=== PATIENT | female | born 1990 | race African-American/Black ===

== ENCOUNTER 2016-08-12 07:56 | Emergency (ER) | payer OTHER ==
[~2016-08-12] VITALS: Ht 160 cm; Wt 90.0 kg
[~2016-08-12 07:56] MED LIST: HYDR-3535 PO; LEVA750T PO; VENTAER INH
[2016-08-12 07:58] VITALS: BP 127/74; PULSE 100; RESP 14; TEMP 98.3; O2SAT 100
[2016-08-12] MEDS ORDERED: TIZA2CAP3 PO (08:17)
--- NOTE | 2016-08-12 08:31 | PD ---
HPI Chief Complaint: Injury Time Seen by Provider: 08:31 Travel History International Travel<30 days: No Contact w/Intl Traveler<30days: No Traveled to known affect area: No History of Present Illness HPI 26-year-old female presents to the emergency department complaint of left foot pain 1 month with worsening. Cannot recall an injury but says she may have fell approximately a month ago and then kicked her bed rail approximately 2 weeks ago. Denies paresthesias, loss of sensation to the affected extremity. Reports decreased range of motion to her toes secondary to pain. Says her left foot is swollen compared to her right foot. Pain is aggravated with ambulation. Patient has been ambulatory on the affected extremity. Has not taken any medications or tried any treatments to alleviate her symptoms. Dr. Tong is her primary care provider and has not followed up with him in regards to her complaint. Denies fever, chills, nausea, vomiting. Allergies to codeine , Dilaudid, naproxen, Tylenol 3, Ultram. Denies significant past medical history. No other modifying factors or associated signs and symptoms. PFSH Past Medical History Hx Anticoagulant Therapy: No Arthritis: No Asthma: No Autoimmune Disease: No Blood Disorders: No Anxiety: No Depression: No Heart Rhythm Problems: No Cancer: No Cardiovascular Problems: No High Cholesterol: No Chemotherapy: No Chest Pain: Yes Congestive Heart Failure: No COPD: No Cerebrovascular Accident: No Cystic Fibrosis: No Diabetes: No Diminished Hearing: No Endocrine: No Gastrointestinal Disorders: No GERD: No Genitourinary: No Headaches: Yes Hiatal Hernia: No Immune Disorder: No Implanted Vascular Access Dvce: Yes Kidney Stones: No Musculoskeletal: Yes Neurologic: Yes ( AV SHUNT PLACED IN 2011) Psychiatric: No Reproductive: No Respiratory: No Immunizations Current: No Migraines: Yes Pneumonia: Yes (04/13/2012) Radiation Therapy: No Renal Failure: No Seizures: No Sickle Cell Disease: No Sleep Apnea: No Thyroid Disease: No Ulcer: No Tetanus Vaccination: > 5 Years PNEUMOCCOCAL Vaccine (Year): 2 ?: Not Menopausal: No : 0 Para: 0 Past Surgical History Abdominal Surgery: No AICD: No Arteriovenous Shunt: Yes (AT 5 MONTHS OLD) Body Medical Devices: CEPHALIC SHUNT AT 5 MONTHS OLD / 16-17 sx since Cardiac Surgery: No Ear Surgery: No Endocrine Surgery: No Eye Surgery: No Genitourinary Surgery: No Gynecologic Surgery: No Insulin Pump: No Joint Replacement: No Neurologic Surgery: Yes (CEPHALIC SHUNT) Oral Surgery: No Pacemaker: No Thoracic Surgery: No Other Surgery: Yes Social History Alcohol Use: No Tobacco Use: No (never) Substance Use: No Allergies-Medications (Allergen,Severity, Reaction): Coded Allergies: Codeine (Verified Allergy, Severe, Nausea/Vomiting, 05/25/16) Naproxen (Verified Allergy, Severe, Itching, 05/25/16) Tylenol #3 (Verified Allergy, Severe, 05/25/16) Ultram (Verified Allergy, Severe, Itching, 05/25/16) Dilaudid (Verified Adverse Reaction, Severe, Itching, 05/25/16) *MDRO Multi-Drug Resistant Organism (Verified Adverse Reaction, Unknown, 05/25/16) 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 No wounds noted to the left. HEAD: Atraumatic. Normocephalic. EYES: Pupils equal and round. No scleral icterus. No injection or drainage. ENT: Mucosa pink and moist. Airway patent. NECK: Trachea midline. CARDIOVASCULAR: Regular rate. RESPIRATORY: No accessory muscle use. GASTROINTESTINAL: Rounded. MUSCULOSKELETAL: Left foot is nonedematous and nonerythematous and without obvious deformity; less than 3 second cap refill; foot and ankle with full range of motion and strength. Left lower extremity is supple and non-tense with 2+ pedal pulses and sensory intact and without erythema or edema. Patient reports tenderness on palpation to the entire foot. No obvious deformities. No clubbing. No cyanosis. No edema. NEUROLOGICAL: Awake and alert. Oriented 3. No obvious cranial nerve deficits. Motor grossly within normal limits. Normal speech. PSYCHIATRIC: Appropriate mood and affect; insight and judgment normal. Data Data Last Documented VS Vital Signs Date Time Temp Pulse Resp B/P Pulse Ox O2 Delivery O2 Flow Rate FiO2 08/12/16 07:58 98.3 100 14 127/74 100 Room Air Orders Foot, Complete ([id number]) (08/12/16 08:33) Crutches (08/12/16 08:33) MDM Medical Decision Making Medical Screen Exam Complete: Yes Emergency Medical Condition: Yes Medical Record Reviewed: Yes Differential Diagnosis Plantar fasciitis, Heel spur, fracture Narrative Course 26-year-old female with left foot pain with questionable injury times one month. Patient reports tenderness on palpation to the entire foot during physical exam. There is no obvious deformity. The left looks very supple and non-tense with 2+ pedal pulses and sensory intact. Toes are pink and warm and with good cap refill. I do not suspect fracture or dislocation and feel that imaging is not necessary, but the patient is requesting imaging. I will order the imaging secondary to questionable injury and physical exam findings. Left foot x-ray ordered. 0916: Left foot x-ray concludes Unremarkable examination of the left foot. Crutches provided for support. Instructed patient to follow up with podiatry. Patient is medically cleared and stable for discharge. Discussed reasons to return to the emergency department. Instructed patient to follow up with primary care provider. Patient agrees with treatment plan. The patients vital signs are stable and the patient is stable for outpatient follow-up and treatment. Patient discharged home, stable and in no acute distress. 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 Patient Instructions: Crutch Instructions (ED), General Instructions Additional Instructions: Tylenol or ibuprofen as directed and as needed for pain and inflammation Rest, ice, compress, and elevate extremity to decrease pain and inflammation Crutches for support Avoid aggravating activity; increase activity as tolerated Follow-up with primary care provider Follow-up with podiatry Return to the emergency department immediately with worsening symptoms Med/Other Pt SpecificInfo: No Change to Meds, No Meds Exist/No RX given Disposition: 01 DISCHARGE HOME Condition: Stable Shraddha Dolan Aug 12, 2016 08:31
--- NOTE | 2016-08-12 09:10 | RADRPT ---
EXAM DATE/TIME: 08/12/2016 08:53 [facility] COMPARISON: No previous studies available for comparison. INDICATIONS : Left foot pain medial side of left foot after hitting it on the bed. MEDICAL HISTORY : Hydrocephalus. SURGICAL HISTORY : Shunt. ENCOUNTER: Initial ACUITY: 1 week PAIN SCORE: 10/10 LOCATION: Left Foot. FINDINGS: Three view examination of the left foot demonstrates no soft tissue swelling, dislocation, or fractur e. The tarsal bones appear intact. The interphalangeal and metatarsophalangeal joints are intact. The calcaneus is intact. Bony mineralization is normal. CONCLUSION: Unremarkable examination of the left foot. Yony Jose MD on August 12, 2016 at 9:05 Board Certified Radiologist. This report was verified electronically.
== END 2016-08-12 09:34 | disposition home or self-care (01) ==
LOC: NEPB 07:56
DX: M79.672 Pain in left foot (principal)
CPT/HCPCS: 73630; 99283; E0113

== ENCOUNTER 2016-09-08 07:36 | Emergency (ER) | payer OTHER ==
[~2016-09-08] VITALS: Ht 162.6 cm; Wt 85.0 kg
[~2016-09-08 07:36] MED LIST changes: -HYDR-3535 PO; -LEVA750T PO; +TIZA2CAP3 PO; -VENTAER INH
[2016-09-08 07:37] VITALS: BP 125/69; PULSE 96; RESP 14; TEMP 98; O2SAT 95
[2016-09-08] MEDS ORDERED: VENTAER INH ×2 (07:53→09:37)
[2016-09-08] MEDS ORDERED: predniSONE 20 MG TAB PO ONE (08:30)
--- NOTE | 2016-09-08 08:31 | PD ---
HPI Chief Complaint: Cold / Flu Symptoms Time Seen by Provider: 08:28 Travel History International Travel<30 days: No Contact w/Intl Traveler<30days: No Traveled to known affect area: No History of Present Illness HPI 26-year-old female presents to the emergency department for evaluation of cold symptoms for approximately 3 days. She reports intermittent wheezing, no shortness breath, chest pain with coughing, coughing, congestion. She denies any fevers or chills. She denies any abdominal pain. No nausea or vomiting. Patient has history of bronchitis and states she uses albuterol inhaler as needed. She states she was using yesterday, but ran out last night. She reports increased wheezing and shortness of breath since then. Patient denies any chance of . She denies any recent travel or surgery. No hemoptysis. No leg edema. Patient is not on control pills. Patient does report a history of hydrocephalus and bronchitis. She has a shunt. She denies any headaches or complications. PFSH Past Medical History Hx Anticoagulant Therapy: No Arthritis: No Asthma: No Autoimmune Disease: No Blood Disorders: No Anxiety: No Depression: No Heart Rhythm Problems: No Cancer: No Cardiovascular Problems: No High Cholesterol: No Chemotherapy: No Chest Pain: Yes Congestive Heart Failure: No COPD: No Cerebrovascular Accident: No Cystic Fibrosis: No Diabetes: No Diminished Hearing: No Endocrine: No Gastrointestinal Disorders: No GERD: No Genitourinary: No Headaches: Yes Hiatal Hernia: No Immune Disorder: No Implanted Vascular Access Dvce: Yes Kidney Stones: No Musculoskeletal: Yes Neurologic: Yes ( AV SHUNT PLACED IN 2011) Psychiatric: No Reproductive: No Respiratory: No Immunizations Current: No Migraines: Yes Pneumonia: Yes (04/13/2012) Radiation Therapy: No Renal Failure: No Seizures: No Sickle Cell Disease: No Sleep Apnea: No Thyroid Disease: No Ulcer: No PNEUMOCCOCAL Vaccine (Year): 2 ?: Not LMP: 07/2016 Menopausal: No : 0 Para: 0 Past Surgical History Abdominal Surgery: No AICD: No Arteriovenous Shunt: Yes (AT 5 MONTHS OLD) Body Medical Devices: CEPHALIC SHUNT AT 5 MONTHS OLD / 16-17 sx since Cardiac Surgery: No Ear Surgery: No Endocrine Surgery: No Eye Surgery: No Genitourinary Surgery: No Gynecologic Surgery: No Insulin Pump: No Joint Replacement: No Neurologic Surgery: Yes (CEPHALIC SHUNT) Oral Surgery: No Pacemaker: No Thoracic Surgery: No Other Surgery: Yes Social History Alcohol Use: No Tobacco Use: No (never) Substance Use: No Allergies-Medications (Allergen,Severity, Reaction): Coded Allergies: Codeine (Verified Allergy, Severe, Nausea/Vomiting, 09/08/16) Naproxen (Verified Allergy, Severe, Itching, 09/08/16) Tylenol #3 (Verified Allergy, Severe, 09/08/16) Ultram (Verified Allergy, Severe, Itching, 09/08/16) Dilaudid (Verified Adverse Reaction, Severe, Itching, 09/08/16) *MDRO Multi-Drug Resistant Organism (Verified Adverse Reaction, Unknown, ) 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 Afebrile. SKIN: Warm and dry. HEAD: Normocephalic. Atraumatic. ENT: Mucosa pink and moist. No erythema or exudates. No uvular edema. No uvular , palatal, or tonsillar deviation. Airway patent. Nasal turbinates appear normal without nasal blood, purulent drainage or septal hematoma. Bilateral tympanic membranes are clear without erythema or perforation. EYES: No scleral icterus. No injection or drainage. NECK: Supple, trachea midline. No JVD or lymphadenopathy. CARDIOVASCULAR: Regular rate and rhythm without murmurs, gallops, or rubs. RESPIRATORY: Breath sounds equal bilaterally. No accessory muscle use. Lungs sounds with expiratory wheezes noted throughout. GASTROINTESTINAL: Abdomen soft, non-tender, nondistended. MUSCULOSKELETAL: No cyanosis, or edema. BACK: Nontender without obvious deformity. No CVA tenderness. Data Data Last Documented VS Vital Signs Date Time Temp Pulse Resp B/P Pulse Ox O2 Delivery O2 Flow Rate FiO2 09/08/16 07:37 98.0 96 14 125/69 95 Room Air Orders Chest, Single Ap (09/08/16 08:28) Prednisone (Deltasone) (09/08/16 08:30) Albuterol-Ipratropium Neb (Duoneb Neb) (09/08/16 08:30) MDM Medical Decision Making Medical Screen Exam Complete: Yes Emergency Medical Condition: Yes Medical Record Reviewed: Yes Interpretation(s) Last Impressions Chest X-Ray 09/08/16827 Signed Impressions: Service Date/Time: Thursday, September 08, 2016 08:29 - CONCLUSION: No acute disease. There is no evidence of pneumonia. Farhat Emerson MD Differential Diagnosis Bronchitis versus viral URI versus pneumonia Narrative Course 26-year-old female presents to the emergency department for evaluation of cold symptoms for 3 days. Physical exam does reveal expiratory wheezes throughout. Patient is given DuoNeb 2 and prednisone 60 mg by mouth. Chest x-ray is ordered and pending. Chest x-ray shows no acute disease. There is no evidence of pneumonia. Patient will be discharged with a prescription for albuterol inhaler and prednisone. She is encouraged to follow with her primary care physician. She is return for any acute worsening of symptoms. Patient verbalizes understanding and agreement. The patient was discharged in stable condition with instructions, including return instructions and follow up instructions. Diagnosis Primary Impression: Viral upper respiratory tract infection with cough Referrals: Primary Care Physician call for appointment Patient Instructions: General Instructions, Upper Respiratory Infection (ED) Departure Forms: Tests/Procedures, Work Release Enter return to work date: Sep 10, 2016 Additional Instructions: Use albuterol inhaler as instructed as needed for shortness of breath/wheezing. Take prednisone as directed. Start this tomorrow. Follow-up with your primary care physician. Return to the emergency department for any acute worsening of symptoms. Med/Other Pt SpecificInfo: Prescription(s) given Scripts Prednisone 20 Mg Tab40 Mg PO DAILY 4 Days Ref 0 Prov:Carina Durham 09/08/16 Albuterol 18 GM Inh (Ventolin Hfa 18 GM Inh)90 Mcg/Act Aer1 Puff INH Q4H PRN ( SHORTNESS OF BREATH) #1 INHALER Ref 0 Prov:Carina Durham 09/08/16 Disposition: 01 DISCHARGE HOME Condition: Stable Carina Durham Sep 08, 2016 08:31
--- NOTE | 2016-09-08 09:19 | RADRPT ---
EXAM DATE/TIME: 09/08/2016 08:29 [facility] COMPARISON: CHEST SINGLE AP, May 25, 2016, 7:16. INDICATIONS : Shortness of breath, wheezing. MEDICAL HISTORY : hyrdocephalus SURGICAL HISTORY : shunt placement ENCOUNTER: Initial ACUITY: 1 day PAIN SCORE: 0/10 LOCATION: Bilateral chest FINDINGS: A single view of the chest demonstrates the lungs to be symmetrically aerated without evidence of mas s, infiltrate or effusion. The cardiomediastinal contours are unremarkable. Osseous structures are intact. Shunt catheter tubing is again noted. There is a mild scoliosis. CONCLUSION: No acute disease. There is no evidence of pneumonia. Farhat Emerson MD on September 08, 2016 at 9:17 Board Certified Radiologist. This report was verified electronically.
[2016-09-08] MEDS: RESP: ALBUTEROL 2.5 MG/IPRATROPIUM 0.5 MG NEB (SCH) INH (09:32)
[2016-09-08] MEDS ORDERED: PRED20 PO (09:37)
== END 2016-09-08 09:55 | disposition home or self-care (01) ==
LOC: NEPB 07:36
DX: J06.9 Acute upper respiratory infection, unspecified (principal); R05 Cough; R06.02 Shortness of breath
CPT/HCPCS: 71010; 94640; 94664; 99284; J7512

== ENCOUNTER 2016-09-26 08:10 | Emergency (ER) | payer OTHER ==
[~2016-09-26] VITALS: Ht 161.3 cm; Wt 86.0 kg
[~2016-09-26 08:10] MED LIST changes: +PRED20 PO; -TIZA2CAP3 PO; +VENTAER INH
[2016-09-26 08:13] VITALS: BP 114/60; PULSE 97; RESP 16; TEMP 98.2; O2SAT 100
--- NOTE | 2016-09-26 08:28 | PD ---
HPI Chief Complaint: Fall Time Seen by Provider: 08:24 Travel History International Travel<30 days: No Contact w/Intl Traveler<30days: No Traveled to known affect area: No History of Present Illness HPI 26-year-old Afro-[place] female presents the emergency department status post fall from slipping in her own home. She complains of back pain from her lumbar spine to her neck. Patient denies hitting her head or loss of consciousness. Her pain is mainly in the soft tissues. She is able to ambulate and moving all extremities normally. She has no numbness or tingling. She describes her pain as 10 over 10. She has no other complaints. She denies headache, dizziness, or nausea. She has a history of MRSA, is allergic to codeine, Dilaudid, Naprosyn, Tylenol 3, and Ultram. PFSH Past Medical History Hx Anticoagulant Therapy: No Arthritis: No Asthma: No Autoimmune Disease: No Blood Disorders: No Anxiety: No Depression: No Heart Rhythm Problems: No Cancer: No Cardiovascular Problems: No High Cholesterol: No Chemotherapy: No Chest Pain: Yes Congestive Heart Failure: No COPD: No Cerebrovascular Accident: No Cystic Fibrosis: No Diabetes: No Diminished Hearing: No Endocrine: No Gastrointestinal Disorders: No GERD: No Genitourinary: No Headaches: Yes Hiatal Hernia: No Immune Disorder: No Implanted Vascular Access Dvce: Yes Kidney Stones: No Musculoskeletal: Yes Neurologic: Yes ( AV SHUNT PLACED IN 2011) Psychiatric: No Reproductive: No Respiratory: No Immunizations Current: No Migraines: Yes Pneumonia: Yes (04/13/2012) Radiation Therapy: No Renal Failure: No Seizures: No Sickle Cell Disease: No Sleep Apnea: No Thyroid Disease: No Ulcer: No PNEUMOCCOCAL Vaccine (Year): 2 ?: Not LMP: 08/18/16 Menopausal: No : 0 Para: 0 Past Surgical History Abdominal Surgery: No AICD: No Arteriovenous Shunt: Yes (AT 5 MONTHS OLD) Body Medical Devices: CEPHALIC SHUNT AT 5 MONTHS OLD / 16-17 sx since Cardiac Surgery: No Ear Surgery: No Endocrine Surgery: No Eye Surgery: No Genitourinary Surgery: No Gynecologic Surgery: No Insulin Pump: No Joint Replacement: No Neurologic Surgery: Yes (CEPHALIC SHUNT) Oral Surgery: No Pacemaker: No Thoracic Surgery: No Other Surgery: Yes Social History Alcohol Use: No Tobacco Use: No (never) Substance Use: No Allergies-Medications (Allergen,Severity, Reaction): Coded Allergies: Codeine (Verified Allergy, Severe, Nausea/Vomiting, 09/08/16) Naproxen (Verified Allergy, Severe, Itching, 09/08/16) Tylenol #3 (Verified Allergy, Severe, 09/08/16) Ultram (Verified Allergy, Severe, Itching, 09/08/16) Dilaudid (Verified Adverse Reaction, Severe, Itching, 09/08/16) *MDRO Multi-Drug Resistant Organism (Verified Adverse Reaction, Unknown, ) 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) Reported Meds & Prescriptions Reported Meds & Active Scripts Active Orphenadrine CR (Orphenadrine Citrate) 100 Mg Tab 100 Mg PO Q12HR Ibuprofen 600 Mg Tab 600 Mg PO Q6H PRN Acetaminophen Extra Strength (Acetaminophen) 500 Mg Cap 1,000 Mg PO Q6H PRN Prednisone 20 Mg Tab 40 Mg PO DAILY 4 Days Ventolin Hfa 18 GM Inh (Albuterol Sulfate) 90 Mcg/Act Aer 1 Puff INH Q4H PRN Reported Ventolin Hfa 18 GM Inh (Albuterol Sulfate) 90 Mcg/Act Aer 2 Puff INH Q4-6H PRN out of inhaler Review of Systems Except as stated in HPI: all other systems reviewed are Neg General / Constitutional: No: Fever Eyes: No: Visual changes HENT: No: Headaches Cardiovascular: No: Chest Pain or Discomfort Respiratory: No: Shortness of Breath Gastrointestinal: No: Abdominal Pain Genitourinary: No: Dysuria Musculoskeletal: Positive: Myalgias, Pain (see history present illness.) Skin: No Rash Neurologic: No: Weakness Psychiatric: No: Depression Endocrine: No: Polydipsia Hematologic/Lymphatic: No: Easy Bruising Physical Exam Narrative GENERAL: Patient appears in no acute distress. She is sitting on the exam table with her legs crossed underneath her, using her phone. SKIN: Warm and dry. Normal color. Normal turgor. No signs of trauma. HEAD: Atraumatic. Normocephalic. Nontender. EYES: Pupils equal and round. No scleral icterus. No injection or drainage. ENT: No nasal bleeding or discharge. Mucous membranes pink and moist. No dental injury. Pharynx is normal. NECK: Trachea midline. No bony tenderness or step-off. Mild soft tissue tenderness on the right lower paraspinal region. Range of motion is full without difficulty. Cervical spine is cleared utilizing nexus criteria. CARDIOVASCULAR: Regular rate and rhythm. RESPIRATORY: No accessory muscle use. Clear to auscultation. Breath sounds equal bilaterally. MUSCULOSKELETAL: Extremities without clubbing, cyanosis, or edema. No obvious deformities. Patient has generalized soft tissue tenderness throughout the thoracic and lumbar regions, Without bony tenderness or step-off or point tenderness noted. Extremities are normal throughout. NEUROLOGICAL: Awake and alert. No obvious cranial nerve deficits. Motor grossly within normal limits. Five out of 5 muscle strength in the arms and legs. Normal speech. PSYCHIATRIC: Appropriate mood and affect; insight and judgment normal. Data Data Last Documented VS Vital Signs Date Time Temp Pulse Resp B/P Pulse Ox O2 Delivery O2 Flow Rate FiO2 09/26/16 08:13 98.2 97 16 114/60 100 Room Air Orders Ibuprofen (Motrin) (09/26/16 08:30) Acetaminophen (Tylenol) (09/26/16 08:30) Orphenadrine Sr (Norflex Cr) (09/26/16 08:30) MDM Medical Decision Making Medical Screen Exam Complete: Yes Emergency Medical Condition: Yes Differential Diagnosis Fall. Thoracic contusion. Thoracic strain. Muscle spasm. Cervical strain. Narrative Course Patient is medically stable at time of exam. Cervical spine is cleared utilizing nexus criteria. Radiographic imaging is not felt warranted based on my history and physical. Patient is given ibuprofen 600 mg by mouth as well as acetaminophen 1000 mg by mouth, as well as Norflex 100 mg by mouth. Patient is given a prescription for 600 mg ibuprofen 4 times a day #40. Patient is given a prescription for acetaminophen 500 mg 1000 mg every 6 hours when necessary #60. Patient is given Norflex 100 mg twice a day #10. Patient is using heat and ice and gentle stretching and follow with her primary care physician if symptoms warrant. Diagnosis Primary Impression: Fall Qualified Code: W19.XXXA - Fall, initial encounter Additional Impressions: Acute cervical myofascial strain Qualified Code: S16.1XXA - Acute cervical myofascial strain, initial encounter Acute thoracic myofascial strain Qualified Code: S29.019A - Acute thoracic myofascial strain, initial encounter Referrals: Primary Care Physician Patient Instructions: General Instructions Additional Instructions: Cervical spine is cleared utilizing nexus criteria. Radiographic imaging is not felt warranted based on my history and physical. Patient is given ibuprofen 600 mg by mouth as well as acetaminophen 1000 mg by mouth, as well as Norflex 100 mg by mouth. Patient is given a prescription for 600 mg ibuprofen 4 times a day #40. Patient is given a prescription for acetaminophen 500 mg 1000 mg every 6 hours when necessary #60. Patient is given Norflex 100 mg twice a day #10. Patient is using heat and ice and gentle stretching and follow with her primary care physician if symptoms warrant. Med/Other Pt SpecificInfo: Prescription(s) given Scripts Orphenadrine ER 12 HR (Orphenadrine CR)100 Mg [id number] Mg PO Q12HR #10 TAB Prov:Odessa Bolton MD 09/26/16 Ibuprofen 600 Mg [id number] Mg PO Q6H PRN (Pain/Inflammation) #40 TAB Prov:Odessa Bolton MD 09/26/16 Acetaminophen (Acetaminophen Extra Strength)500 Mg Cap1,000 Mg PO Q6H PRN (PAIN SCALE 4 TO 10) #60 CAP Ref 1 Prov:Odessa Bolton MD 09/26/16 Disposition: 01 DISCHARGE HOME Condition: Stable Mayank Finch Sep 26, 2016 08:28
[2016-09-26] MEDS ORDERED: ORPHENADRINE CITRATE 100 MG SUSTAINED RELEASE TAB PO ONE (08:30)
[2016-09-26] MEDS ORDERED: IBUPROFEN 600 MG TAB PO ONE (08:30)
[2016-09-26] MEDS ORDERED: ACETAMINOPHEN 500 MG CPLT PO ONE (08:30)
[2016-09-26] MEDS ORDERED: EXTR500C PO (08:34)
[2016-09-26] MEDS ORDERED: ORPH100T99 PO (08:34)
[2016-09-26] MEDS ORDERED: IBUP-232 PO (08:34)
== END 2016-09-26 08:57 | disposition home or self-care (01) ==
LOC: NEPB 08:10
DX: S16.1XXA Strain of muscle, fascia and tendon at neck level, initial encounter (principal); S29.012A Strain of muscle and tendon of back wall of thorax, initial encounter; W01.0XXA Fall on same level from slipping, tripping and stumbling without subsequent striking against object, initial encounter; Y92.009 Unspecified place in unspecified non-institutional (private) residence as the place of occurrence of the external cause
CPT/HCPCS: 99283

== ENCOUNTER 2016-11-25 19:35 | Emergency (ER) | payer OTHER ==
[~2016-11-25 19:35] MED LIST changes: +EXTR500C PO; +IBUP-232 PO; +ORPH100T99 PO
[2016-11-25 19:37] VITALS: BP 149/115; PULSE 100; RESP 16; TEMP 99; O2SAT 100
--- NOTE | 2016-11-25 19:45 | PD ---
Physical Exam Time Seen by Provider: 19:44 Narrative 26 y/o female hx of hydrocephalus w/ shunt complaining of squeezing h/a, nausea. Vital signs reviewed. Seen at triage desk. Awaiting bed placement. Data Data Last Documented VS Vital Signs Date Time Temp Pulse Resp B/P Pulse Ox O2 Delivery O2 Flow Rate FiO2 11/25/16 19:37 99.0 100 16 149/115 100 Room Air [facility] Medical Record Reviewed: Yes Supervised Visit with ANNIKA: Edy Coles November 25, 2016 19:45
[2016-11-25] MEDS ORDERED: SODIUM CHLOR 0.9% 1000 ML INJ 1,000 ML IV ONE (20:30)
[2016-11-25] MEDS ORDERED: KETOROLAC TROMETHAMINE 30 MG/ML (IVP) VIAL IV PUSH ONE (20:30)
[2016-11-25] MEDS ORDERED: diphenhydrAMINE HCL 50 MG/ML VIAL IV PUSH ONE (20:30)
[2016-11-25] MEDS ORDERED: PROCHLORPERAZINE INJ 10 MG/2 ML VIAL IV PUSH ONE (20:30)
--- NOTE | 2016-11-25 20:31 | PD ---
HPI Chief Complaint: Headache Time Seen by Provider: 20:09 Travel History International Travel<30 days: No Contact w/Intl Traveler<30days: No Traveled to known affect area: No History of Present Illness HPI The patient is a 26 year old female who presents to the [facility] emergency department with a history of PLASTIC EXTRUSION OPERATOR shunt placement that occurred at 5 months of age related to hydrocephalus with numerous subsequent revisions most recently in 2014 in [place]. She is followed by . She was last seen for evaluation of her programmable shunt in 2016. The patient reports that she has chronic daily headaches, however yesterday her headache changed. She reports that she's had a headache it's been constant yesterday that feels like "her head is squeezing her brain". The patient reports having pain along the site of the shunt which is palpable along the right occipital area going down the right side of her neck. The patient denies having any swelling over the site. She denies having any fevers. She reports having nausea but no vomiting. She reports having sensitivity to light, however she denies any double vision. The patient's last menstrual cycle was reportedly at the beginning of October. She reports that her cycles are somewhat irregular. She denies any possibility of being . The patient reports that she did call her neurosurgeon in [place] prior to arrival and was told to come to the emergency department for evaluation emergently. The patient denies having a follow-up appointment scheduled for this year. The patient denies any recent fevers, cough, congestion, neck pain, chest pain, shortness of breath, abdominal pain, vomiting, diarrhea, urinary symptoms, one-sided weakness, slurred speech, facial droop, numbness or tingling to her extremities, or difficulty with word finding ability per [facility] Past Medical History Narrative Medical The patient's past medical history is significant for hydrocephalus at status post ventriculoperitoneal shunt placement with a programmable shunt at 5 months of age. The patient reports having multiple revisions of the shunt, history of chronic headaches, history of pneumonia in 2011. Hx Anticoagulant Therapy: No Arthritis: No Asthma: No Autoimmune Disease: No Blood Disorders: No Anxiety: No Depression: No Heart Rhythm Problems: No Cancer: No Cardiovascular Problems: No High Cholesterol: No Chemotherapy: No Chest Pain: Yes Congestive Heart Failure: No COPD: No Cerebrovascular Accident: No Cystic Fibrosis: No Diabetes: No Diminished Hearing: No Endocrine: No Gastrointestinal Disorders: No GERD: No Genitourinary: No Headaches: Yes Hiatal Hernia: No Immune Disorder: No Implanted Vascular Access Dvce: Yes Kidney Stones: No Musculoskeletal: Yes Neurologic: Yes ( AV SHUNT PLACED IN 2011) Psychiatric: No Reproductive: No Respiratory: No Immunizations Current: No Migraines: Yes Pneumonia: Yes (04/13/2012) Radiation Therapy: No Renal Failure: No Seizures: No Sickle Cell Disease: No Sleep Apnea: No Thyroid Disease: No Ulcer: No PNEUMOCCOCAL Vaccine (Year): 2 ?: Not LMP: 10/26/16 Menopausal: No : 0 Para: 0 Past Surgical History Narrative Surgical The Patient's past surgical history is significant for a ventriculoperitoneal shunt placement, multiple shunt replacements and revisions. Abdominal Surgery: No AICD: No Arteriovenous Shunt: Yes (AT 5 MONTHS OLD) Body Medical Devices: CEPHALIC SHUNT AT 5 MONTHS OLD / 16-17 sx since Cardiac Surgery: No Ear Surgery: No Endocrine Surgery: No Eye Surgery: No Genitourinary Surgery: No Gynecologic Surgery: No Insulin Pump: No Joint Replacement: No Neurologic Surgery: Yes (CEPHALIC SHUNT) Oral Surgery: No Pacemaker: No Thoracic Surgery: No Other Surgery: Yes Social History Alcohol Use: No Tobacco Use: No Substance Use: No Allergies-Medications (Allergen,Severity, Reaction): Coded Allergies: Codeine (Verified Allergy, Severe, Nausea/Vomiting, 09/26/16) Naproxen (Verified Allergy, Severe, Itching, 09/26/16) Tylenol #3 (Verified Allergy, Severe, 09/26/16) Ultram (Verified Allergy, Severe, Itching, 09/26/16) Dilaudid (Verified Adverse Reaction, Severe, Itching, 09/26/16) *MDRO Multi-Drug Resistant Organism (Verified Adverse Reaction, Unknown, ) 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) Reported Meds & Prescriptions Reported Meds & Active Scripts Active Zofran Odt (Ondansetron Odt) 4 Mg Tab 4 Mg SL Q6HR PRN Lortab (Hydrocodone-Acetaminophen) 5-325 Mg Tab 1 Tab PO Q6H PRN Ventolin Hfa 18 GM Inh (Albuterol Sulfate) 90 Mcg/Act Aer 1 Puff INH Q4H PRN Reported Ventolin Hfa 18 GM Inh (Albuterol Sulfate) 90 Mcg/Act Aer 2 Puff INH Q4-6H PRN out of inhaler Review of Systems Except as stated in HPI: all other systems reviewed are Neg General / Constitutional: No: Fever Eyes: No: Visual changes HENT: Positive: Headaches, No: Sore Throat, Rhinorrhea, Congestion, Neck Stiffness Cardiovascular: No: Chest Pain or Discomfort Respiratory: No: Shortness of Breath Gastrointestinal: Positive: Nausea, No: Vomiting, Diarrhea, Abdominal Pain, Changes in Bowel Habits, Indigestion, Loss of Appetite Genitourinary: No: Dysuria Musculoskeletal: No: Myalgias, Pain Skin: No Rash Neurologic: Positive: Headache, No: Weakness, Focal Abnormalities, Change in Mentation, Slurred Speech, Sensory Disturbance Psychiatric: No: Depression Endocrine: No: Polydipsia Hematologic/Lymphatic: No: Easy Bruising Physical Exam Narrative General: The patient is a well-developed well-nourished female in no acute distress. Head and Neck exam: Head is normocephalic atraumatic. The patient on palpation of her shunt along the right occipital area and down into the neck has no overlying swelling, erythema, drainage, or fluctuance. Eyes: EOMI, pupils are equal round and reactive to light. Nose: Midline septum with pink mucous membranes Mouth: Dentition unremarkable. Moist mucus membranes. Posterior oropharynx is not erythematous. No tonsillar hypertrophy. Uvula midline. Airway patent. Neck: No palpable lymphadenopathy. No nuchal rigidity. No thyromegaly. Cardiovascular: Regular rate and rhythm without murmurs, gallops, or rubs. Lungs: Clear to auscultation bilaterally. No wheezes, rhonchi, or rales. Abdomen: Soft, without tenderness to palpation in all 4 quadrants of the abdomen. No guarding, rebound, or rigidity. Normal bowel sounds are audible. No tenderness on palpation of McBurney's point. Extremities: No clubbing, cyanosis, or edema. 2+ pulses in all 4 extremities. No calf tenderness on palpation Back: No spinous process tenderness to palpation. No costovertebral angle tenderness to palpation. Neurologic Exam: Cranial nerves 2-12 were intact on exam. Strength is 5/5 in all 4 extremities. No sensory deficits noted. No dysdiadochokinesis. Good finger to nose and Heel to cazares bilaterally. Skin Exam: No rash noted. Intact skin that is warm and dry. Data Data Last Documented VS Vital Signs Date Time Temp Pulse Resp B/P Pulse Ox O2 Delivery O2 Flow Rate FiO2 11/25/16 20:05 Room Air 11/25/16 19:37 99.0 100 16 149/115 100 Orders Shunt Series (11/25/16 ) Complete Blood Count With Diff (11/25/16 20:23) Comprehensive Metabolic Panel (11/25/16 20:23) Lipase (11/25/16 20:23) Urinalysis - C+S If Indicated (11/25/16 20:23) Magnesium (Mg) (11/25/16 20:23) Ct Brain W/O Iv Contrast(Rout) (11/25/16 20:23) Iv Access Insert/Monitor (11/25/16 20:23) Ecg Monitoring (11/25/16 20:23) Oximetry (11/25/16 20:23) Ed Urine Pregnancytest Poc (11/25/16 20:23) Sodium Chlor 0.9% 1000 Ml Inj (Ns 1000 M (11/25/16 20:30) Ketorolac Inj (Toradol Inj) (11/25/16 20:30) Prochlorperazine Inj (Compazine Inj) (11/25/16 20:30) Diphenhydramine Inj (Benadryl Inj) (11/25/16 20:30) Labs Laboratory Tests Test 11/25/16 11/25/16 20:35 21:35 White Blood Count 13.5 TH/MM3 Red Blood Count 4.72 MIL/MM3 Hemoglobin 11.7 GM/DL Hematocrit 36.2 % Mean Corpuscular Volume 76.7 FL Mean Corpuscular Hemoglobin 24.9 PG Mean Corpuscular Hemoglobin 32.4 % Concent Red Cell Distribution Width 14.3 % Platelet Count 310 TH/MM3 Mean Platelet Volume 8.2 FL Neutrophils (%) (Auto) 65.7 % Lymphocytes (%) (Auto) 25.7 % Monocytes (%) (Auto) 6.2 % Eosinophils (%) (Auto) 1.8 % Basophils (%) (Auto) 0.6 % Neutrophils # (Auto) 8.8 TH/MM3 Lymphocytes # (Auto) 3.5 TH/MM3 Monocytes # (Auto) 0.8 TH/MM3 Eosinophils # (Auto) 0.2 TH/MM3 Basophils # (Auto) 0.1 TH/MM3 CBC Comment AUTO DIFF Differential Comment AUTO DIFF CONFIRMED Platelet Estimate NORMAL Platelet Morphology Comment NORMAL Urine Color LIGHT-YELLOW Urine Turbidity HAZY Urine pH 5.5 Urine Specific [place] 1.018 Urine Protein NEG mg/dL Urine Glucose (UA) NEG mg/dL Urine Ketones NEG mg/dL Urine Occult Blood SMALL Urine Nitrite NEG Urine Bilirubin NEG Urine Urobilinogen LESS THAN 2.0 MG/DL Urine Leukocyte Esterase LARGE Urine RBC 2 /hpf Urine WBC 5 /hpf Urine Squamous Epithelial 3 /hpf Cells Urine Bacteria RARE /hpf Microscopic Urinalysis Comment CULT NOT INDICATED Sodium Level 140 MEQ/L Potassium Level 3.7 MEQ/L Chloride Level 108 MEQ/L Carbon Dioxide Level 25.9 MEQ/L Anion Gap 6 MEQ/L Blood Urea Nitrogen 13 MG/DL Creatinine 0.57 MG/DL Estimat Glomerular Filtration 158 ML/MIN Rate Random Glucose 114 MG/DL Calcium Level 8.5 MG/DL Magnesium Level 1.8 MG/DL Total Bilirubin 0.2 MG/DL Aspartate Amino Transf 9 U/L (AST/SGOT) Alanine Aminotransferase 13 U/L (ALT/SGPT) Alkaline Phosphatase 68 U/L Total Protein 7.0 GM/DL Albumin 3.2 GM/DL Lipase 75 U/L [facility] Medical Decision Making Medical Screen Exam Complete: Yes Emergency Medical Condition: Yes Medical Record Reviewed: Yes Interpretation(s) Last Impressions Shunt Study (Imaging) 11/25/16 0000 Signed Impressions: Service Date/Time: Friday, November 25, 2016 20:41 - CONCLUSION: Intact shunt. Yony Jose MD Differential Diagnosis PLASTIC EXTRUSION OPERATOR shunt disruption, versus malfunction, versus exacerbation of usual headache complex, versus tension headache, versus sinusitis, versus migraine headache Narrative Course During the course of the patients emergency department visit, the patients history, examination, and differential diagnosis were reviewed with the patient. The patient had IV access obtained and blood work sent for analysis. The patient was placed on a ekg monitor with oximetry and blood pressure monitoring. A CT scan of the brain has been ordered. A shunt series has been ordered to evaluate for shunt continuity. The patient was initially provided saline 1 L IV fluid bolus, Compazine 5 mg IV , Toradol 15 mg IV, Benadryl 25 mg IV per The patients laboratory studies were reviewed and remarkable for a white count of 13.5, hemoglobin 11.7, platelets 310 with a normal differential, urinalysis shows small occult blood, large leukocyte esterase, 2 rbc's, wbc's 5, 3 squamous epithelial cells, culture not indicated. CMP is remarkable for chloride of 108, glucose 114, AST 9, albumin 3.2, lipase 75 albumin is 3.2 Radiology studies were reviewed and remarkable for a shunt study that shows no acute abnormality with an intact shunt. CT scan of the brain showed no evidence of acute intracranial abnormality. Similar appearance to prior CT scans done, PLASTIC EXTRUSION OPERATOR shunt appears to be in similar position. No evidence of recurrent hydrocephalus. The patient will be discharged home with close follow-up with her neurosurgeon in [place]. The patient was instructed to make an appointment for follow-up in the morning. The patient is resting comfortably and feels better, is alert and in no distress. The patients results and examination findings were discussed with the patient. The repeat examination is unremarkable and benign. The history, exam, diagnostic testing, and current condition do not suggest any significant pathology to warrant further testing, continued ED treatment, admission, or surgical evaluation at this point. The vital signs have been stable. The patient does not have uncontrollable pain, intractable vomiting, or other significant symptoms. The patient's condition is stable and appropriate for discharge. The patient will pursue further outpatient evaluation with a primary care physician or other designated or consulting physician as indicated in the discharge instructions. The patient expressed understanding and was agreeable with this plan. Diagnosis Primary Impression: Headache Qualified Code: R51 - Nonintractable headache, unspecified chronicity pattern , unspecified headache type Referrals: Neurosurgeon call for appointment Call for an appointment in the morning with your neurosurgeon in [place]. Patient Instructions: Acute Headache (ED), General Instructions Med/Other Pt SpecificInfo: Prescription(s) given Scripts Ondansetron Odt (Zofran Odt)4 Mg Tab4 Mg SL Q6HR PRN (Nausea/Vomiting) #7 TAB Ref 0 Prov:Berenice Peng MD 11/25/16 Hydrocodone-Acetaminophen (Lortab)5-325 Mg Tab1 Tab PO Q6H PRN (PAIN) #12 TAB Ref 0 Prov:Berenice Peng MD 11/25/16 Disposition: 01 DISCHARGE HOME Condition: Stable Berenice Peng MD November 25, 2016 20:31
[2016-11-25 20:46] LABS: AUTOMATED NEUTROPHIL # 8.8 TH/MM3 (1.8-7.7); BASOPHIL # 0.1 TH/MM3 (0-0.2); BASOPHIL % 0.6 % (0.0-2.0); EOSINOPHIL # 0.2 TH/MM3 (0-0.4); EOSINOPHIL % 1.8 % (0.0-4.0); HEMATOCRIT 36.2 % (35.0-46.0); LYMPH % 25.7 % (9.0-44.0); LYMPHOCYTE # 3.5 TH/MM3 (1.0-4.8); MEAN CELL VOLUME 76.7 FL (80.0-100.0); MEAN CORPUSCULAR HEMOGLOBIN 24.9 PG (27.0-34.0); MEAN CORPUSCULAR HGB CONC 32.4 % (32.0-36.0); MONO % 6.2 % (0.0-8.0); NEUT % 65.7 % (16.0-70.0); PLATELET COUNT 310 TH/MM3 (150-450); RED BLOOD COUNT 4.72 MIL/MM3 (4.00-5.30); RED CELL DISTRIBUTION WIDTH 14.3 % (11.6-17.2); WHITE BLOOD COUNT 13.5 TH/MM3 (4.0-11.0)
[2016-11-25 20:48] LABS: HEMO FLAGS AUTO DIFF
[2016-11-25 20:49] LABS: BACTERIA, URINE RARE /hpf; BLOOD, URINE SMALL (NEG); COMMENT (UR) CULT NOT INDICATED; CULTURE IF INDICATED CULT NOT INDICATED; GLUCOSE,URINE NEG (NEG); KETONE, URINE NEG (NEG); NITRITE,URINE NEG (NEG); PH, URINE 5.5 (5.0-8.5); SQUAMOUS EPITHELIAL CELL URINE 3 /hpf (0-5); URINE COLOR LIGHT-YELLOW (YELLW/STRAW)
[2016-11-25 21:18] LABS: PLATELET ESTIMATE SMEAR NORMAL (NORMAL); PLATELET MORPHOLOGY NORMAL (NORMAL)
[2016-11-25 21:19] LABS: SCAN/DIFF AUTO DIFF CONFIRMED
--- NOTE | 2016-11-25 21:26 | RADRPT ---
EXAM DATE/TIME: 11/25/2016 20:41 [facility] COMPARISON: SHUNT SERIES, December 03, 2015, 19:53. INDICATIONS : Shunt complication. Headache for the past two days. MEDICAL HISTORY : None. SURGICAL HISTORY : Shunt. ENCOUNTER: Initial ACUITY: 2 days PAIN SCORE: 10/10 LOCATION: head. FINDINGS: Radiograph of the skull, neck, chest and abdomen performed to evaluate shunt patency. The shunt cath eter is seen entering the right parietal region with its tip in the region of the body of the right l ateral ventricle. The catheter is continuous in its course terminating in the pelvis peritoneal cavity. No catheter dis ruption is identified. The visualized heart, lungs and abdominal structures are intact. CONCLUSION: Intact shunt. Yony Jose MD on November 25, 2016 at 21:23 Board Certified Radiologist. This report was verified electronically.
[2016-11-25] MEDS ORDERED: HYDR-3533 PO (21:42)
[2016-11-25] MEDS ORDERED: ZOFR4TAB3 SL (21:42)
--- NOTE | 2016-11-25 21:54 | RADRPT ---
EXAM DATE/TIME: 11/25/2016 20:59 [facility] COMPARISON: CT BRAIN W/O CONTRAST, February 10, 2015, 10:12. CT BRAIN W/O CONTRAST, May 16, 2015, 7:37. CT BRAIN W/O CONTRAST, July 10, 2015, 3:29. CT BRAIN W/O CONTRAST, December 03, 2015 , 20:36. CT BRAIN W/O CONTRAST, March 15, 2016, 0:14. INDICATIONS : Headache with nausea , weakness. RADIATION DOSE: 56.33 CTDIvol (mGy) MEDICAL HISTORY : None SURGICAL HISTORY : None. Shunt ENCOUNTER: Initial ACUITY: 1 day PAIN SCALE: 9/10 LOCATION: Cranial TECHNIQUE: Multiple contiguous axial images were obtained of the head. Using automated exposure control and adjustment of the mA and/or kV according to patient size, radiation dose was kept as low as reasonably achievable to obtain optimal diagnostic quality images. FINDINGS: There is a ventriculostomy tube in place from the right parietal approach. The tip ove rlies the body of the right lateral ventricle. The bodies of the lateral ventricles are somewhat lat erally positioned in relationship to the midline. 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 The anterior aspect of the corpus callosum appears present. The right lateral ventricle is sl it-like. The configuration of the ventricles is unchanged from the prior exam. No areas of hemorrha ge, mass effect or acute infarction are seen. The posterior fossa structures are intact. The bony s tructures are grossly intact. CONCLUSION: 1. Ventriculostomy tube in place from the right parietal approach. The location of the ventriculostom y tube overlies a slit-like body of the right lateral ventricle. The ventricular configuration is un changed. 2. No acute abnormality is seen. Yony Jose MD on November 25, 2016 at 21:36 Board Certified Radiologist. This report was verified electronically.
[2016-11-25 22:18] LABS: ALT (GPT) 13 U/L (10-53); ANION GAP 6 MEQ/L (5-15); AST (GOT) 9 U/L (15-37); BICARBONATE 25.9 MEQ/L (21.0-32.0); BLOOD UREA NITROGEN 13 MG/DL (7-18); CHLORIDE 108 MEQ/L (98-107); GLOMERULAR FILTRATION RATE 158 ML/MIN (>89); MAGNESIUM 1.8 MG/DL (1.5-2.5); POTASSIUM 3.7 MEQ/L (3.5-5.1); SODIUM (NA) 140 MEQ/L (136-145)
[2016-11-25 22:20] LABS: ALKALINE PHOSPHATASE 68 U/L (45-117); TOTAL BILIRUBIN ADULT 0.2 MG/DL (0.2-1.0)
== END 2016-11-25 23:37 | disposition home or self-care (01) ==
LOC: NEPC 19:35
DX: R51 Headache (principal); R11.0 Nausea; Z86.69 Personal history of other diseases of the nervous system and sense organs; Z87.39 Personal history of other diseases of the musculoskeletal system and connective tissue; Z87.01 Personal history of pneumonia (recurrent)
CPT/HCPCS: 70250; 70450; 71010; 72040; 74000; 80053; 81001; 83690; 83735; 84703; 85025; 96361; 96374; 96375; 99284; J0780; J1200; J1885; J7030

== ENCOUNTER 2017-01-05 21:00 | Emergency (ER) | payer OTHER ==
[~2017-01-05] VITALS: Ht 160 cm; Wt 85.0 kg
[~2017-01-05 21:00] MED LIST changes: -EXTR500C PO; +HYDR-3533 PO; -IBUP-232 PO; -ORPH100T99 PO; -PRED20 PO; +ZOFR4TAB3 SL
[2017-01-05 21:04] VITALS: BP 122/74; PULSE 87; RESP 16; TEMP 98.7; O2SAT 100
--- NOTE | 2017-01-05 22:01 | PD ---
Physical Exam Date Seen by Provider: Jan 05, 2017 Time Seen by Provider: 21:57 Narrative 26 yo female here for evaluation of headache. History of hydrocephalus. Has had it drained before. Has been having pain for a week or more, getting worst. No neurologist. Neck pain with dizziness. Similar to her previous episodes. pain is 8/10. pressure like. Vitals sign stable. Patient awaiting bed placement. Data Data Last Documented VS Vital Signs Date Time Temp Pulse Resp B/P Pulse Ox O2 Delivery O2 Flow Rate FiO2 01/05/17 21:04 98.7 87 16 122/74 100 Room Air [facility] Medical Record Reviewed: Yes Supervised Visit with ANNIKA: No Estrada Jean-Baptiste Jan 05, 2017 22:01
[2017-01-05] MEDS ORDERED: SODIUM CHLORIDE 0.9% FLUSH 10 ML FLUSH IVF PRN (23:45)
[2017-01-05] MEDS ORDERED: PROCHLORPERAZINE INJ 10 MG/2 ML VIAL IVP ONE (23:45)
[2017-01-05] MEDS ORDERED: diphenhydrAMINE HCL 50 MG/ML VIAL IVP ONE (23:45)
[2017-01-06 00:04] VITALS: RESP 16
[2017-01-06 00:11] LABS: AUTOMATED NEUTROPHIL # 7.6 TH/MM3 (1.8-7.7); BASOPHIL # 0.1 TH/MM3 (0-0.2); BASOPHIL % 0.4 % (0.0-2.0); EOSINOPHIL # 0.1 TH/MM3 (0-0.4); EOSINOPHIL % 1.3 % (0.0-4.0); HEMO FLAGS DIFF FINAL; LYMPH % 28.6 % (9.0-44.0); LYMPHOCYTE # 3.4 TH/MM3 (1.0-4.8); MEAN CELL VOLUME 75.9 FL (80.0-100.0); MEAN CORPUSCULAR HEMOGLOBIN 24.7 PG (27.0-34.0); MEAN CORPUSCULAR HGB CONC 32.6 % (32.0-36.0); MONO % 5.3 % (0.0-8.0); NEUT % 64.4 % (16.0-70.0); PLATELET COUNT 343 TH/MM3 (150-450); RED BLOOD COUNT 4.74 MIL/MM3 (4.00-5.30); RED CELL DISTRIBUTION WIDTH 14.1 % (11.6-17.2); WHITE BLOOD COUNT 11.8 TH/MM3 (4.0-11.0)
[2017-01-06 00:31] LABS: BICARBONATE 28.5 MEQ/L (21.0-32.0); POTASSIUM 3.4 MEQ/L (3.5-5.1)
--- NOTE | 2017-01-06 00:44 | RADRPT ---
EXAM DATE/TIME: 01/06/2017 00:27 [facility] COMPARISON: CT BRAIN W/O CONTRAST, January 06, 2017, 0:34. INDICATIONS : Headaches. MEDICAL HISTORY : None. SURGICAL HISTORY : shunt. ENCOUNTER: Initial ACUITY: 2 days PAIN SCORE: 0/10 LOCATION: Bilateral head FINDINGS: Ventriculoperitoneal shunt is present and appears intact without any break and the tip is coiled in t he pelvis. CONCLUSION: Intact shunt. Isac Hutchinson MD on January 06, 2017 at 0:42 Board Certified Radiologist. This report was verified electronically.
--- NOTE | 2017-01-06 00:48 | RADRPT ---
EXAM DATE/TIME: 01/06/2017 00:34 [facility] COMPARISON: CT BRAIN W/O CONTRAST, March 20, 2015, 21:02. CT BRAIN W/O CONTRAST, March 15, 2016, 0:14. CT BRAIN W/O CONTRAST, November 25, 2016, 20:59. INDICATIONS : Cephalgia. RADIATION DOSE: 38.28 CTDIvol (mGy) MEDICAL HISTORY : Cardiovascular disease. SURGICAL HISTORY : AV shunt. ENCOUNTER: Initial ACUITY: 2 weeks PAIN SCALE: 7/10 LOCATION: distal TECHNIQUE: Multiple contiguous axial images were obtained of the head. Using automated exposure control and adjustment of the mA and/or kV according to patient size, radiation dose was kept as low as reasonably achievable to obtain optimal diagnostic quality images. FINDINGS: There is no evidence for intracranial hemorrhage, mass effect, mass lesions, edema, or extra-axial fl uid collections. The visualized bony structures appear intact. Ventriculoperitoneal shunt is present from the right posterior trigonal approach no change. The right ventricle appears decompressed and n ot changed since 2014 left side is within normal size. 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 There are no signs of acute infarction for technique. CONCLUSION: Overall stable examination not significantly changed since 2014. Isac Hutchinson MD on January 06, 2017 at 0:42 Board Certified Radiologist. This report was verified electronically.
--- NOTE | 2017-01-06 01:02 | PD ---
HPI Chief Complaint: Headache Time Seen by Provider: 23:40 Travel History International Travel<30 days: No Contact w/Intl Traveler<30days: No Traveled to known affect area: No History of Present Illness HPI 26 old female complains about 1-2 weeks of generalized cephalgia. 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 She denies vomiting and fever however reports nausea. Headache pain feels similar to priors with a constant pain. It is moderate. There is no modifying factor. She follows with neurologist in [facility]. PFSH Past Medical History Hx Anticoagulant Therapy: No Arthritis: No Asthma: No Autoimmune Disease: No Blood Disorders: No Anxiety: No Depression: No Heart Rhythm Problems: No Cancer: No Cardiovascular Problems: Yes High Cholesterol: No Chemotherapy: No Chest Pain: Yes Congestive Heart Failure: No COPD: No Cerebrovascular Accident: No Cystic Fibrosis: No Diabetes: No Diminished Hearing: No Endocrine: No Gastrointestinal Disorders: No GERD: No Genitourinary: No Headaches: Yes Hiatal Hernia: No Heparin Induced Thrombocytopen: No Hypertension: No Immune Disorder: No Implanted Vascular Access Dvce: Yes Kidney Stones: No Musculoskeletal: Yes Neurologic: Yes ( AV SHUNT PLACED IN 2011) Psychiatric: No Reproductive: No Respiratory: No Immunizations Current: No Migraines: Yes Pneumonia: Yes (04/13/2012) Radiation Therapy: No Renal Failure: No Seizures: No Sickle Cell Disease: No Sleep Apnea: No Thyroid Disease: No Ulcer: No Tetanus Vaccination: Unknown Influenza Vaccination: Yes PNEUMOCCOCAL Vaccine (Year): 2 ?: Not LMP: 01/02/17 Menopausal: No : 0 Para: 0 Past Surgical History Abdominal Surgery: No AICD: No Arteriovenous Shunt: Yes (AT 5 MONTHS OLD) Body Medical Devices: CEPHALIC SHUNT AT 5 MONTHS OLD / 16-17 sx since Cardiac Surgery: No Ear Surgery: No Endocrine Surgery: No Eye Surgery: No Genitourinary Surgery: No Gynecologic Surgery: No Insulin Pump: No Joint Replacement: No Neurologic Surgery: Yes (CEPHALIC SHUNT) Oral Surgery: No Pacemaker: No Thoracic Surgery: No Other Surgery: Yes Social History Alcohol Use: No Tobacco Use: No Substance Use: No Allergies-Medications (Allergen,Severity, Reaction): Coded Allergies: Codeine (Verified Allergy, Severe, Nausea/Vomiting, 01/05/17) Naproxen (Verified Allergy, Severe, Itching, 01/05/17) Tylenol #3 (Verified Allergy, Severe, 01/05/17) Ultram (Verified Allergy, Severe, Itching, 01/05/17) *MDRO Multi-Drug Resistant Organism (Verified Adverse Reaction, Unknown, ) 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 HEAD: Atraumatic. Normocephalic. EYES: Pupils equal and round. No scleral icterus. No injection or drainage. ENT: No nasal bleeding or discharge. Mucous membranes pink and moist. NECK: Trachea midline. No JVD. Along the right posterior neck there is a palpable shunt, nontender without erythema or warmth. CARDIOVASCULAR: Regular rate and rhythm. No murmur appreciated. RESPIRATORY: No accessory muscle use. Clear to auscultation. Breath sounds equal bilaterally. GASTROINTESTINAL: Abdomen soft, non-tender, nondistended. Hepatic and splenic margins not palpable. MUSCULOSKELETAL: No obvious deformities. No clubbing. No cyanosis. No edema. NEUROLOGICAL: Awake and alert. No obvious cranial nerve deficits. Motor grossly within normal limits. Normal speech. PSYCHIATRIC: Appropriate mood and affect; insight and judgment normal. Data Data Last Documented VS Vital Signs Date Time Temp Pulse Resp B/P Pulse Ox O2 Delivery O2 Flow Rate FiO2 01/06/17 00:04 16 01/05/17 21:04 98.7 87 122/74 100 Room Air Vital signs reviewed Orders Complete Blood Count With Diff (01/05/17 23:40) Basic Metabolic Panel (Bmp) (01/05/17 23:40) Ct Brain W/O Iv Contrast(Rout) (01/05/17 23:40) Ecg Monitoring (01/05/17 23:40) Iv Access Insert/Monitor (01/05/17 23:40) Oximetry (01/05/17 23:40) Sodium Chloride 0.9% Flush (Ns Flush) (01/05/17 23:45) Prochlorperazine Inj (Compazine Inj) (01/05/17 23:45) Diphenhydramine Inj (Benadryl Inj) (01/05/17 23:45) Shunt Series (01/05/17 ) Labs Laboratory Tests Test 01/05/17 23:59 White Blood Count 11.8 TH/MM3 Red Blood Count 4.74 MIL/MM3 Hemoglobin 11.7 GM/DL Hematocrit 36.0 % Mean Corpuscular Volume 75.9 FL Mean Corpuscular Hemoglobin 24.7 PG Mean Corpuscular Hemoglobin 32.6 % Concent Red Cell Distribution Width 14.1 % Platelet Count 343 TH/MM3 Mean Platelet Volume 7.8 FL Neutrophils (%) (Auto) 64.4 % Lymphocytes (%) (Auto) 28.6 % Monocytes (%) (Auto) 5.3 % Eosinophils (%) (Auto) 1.3 % Basophils (%) (Auto) 0.4 % Neutrophils # (Auto) 7.6 TH/MM3 Lymphocytes # (Auto) 3.4 TH/MM3 Monocytes # (Auto) 0.6 TH/MM3 Eosinophils # (Auto) 0.1 TH/MM3 Basophils # (Auto) 0.1 TH/MM3 CBC Comment DIFF FINAL Differential Comment Sodium Level 143 MEQ/L Potassium Level 3.4 MEQ/L Chloride Level 106 MEQ/L Carbon Dioxide Level 28.5 MEQ/L Anion Gap 9 MEQ/L Blood Urea Nitrogen 9 MG/DL Creatinine 0.76 MG/DL Estimat Glomerular Filtration 113 ML/MIN Rate Random Glucose 119 MG/DL Calcium Level 9.0 MG/DL MDM Medical Decision Making Medical Screen Exam Complete: Yes Emergency Medical Condition: Yes Medical Record Reviewed: Yes Differential Diagnosis Hydrocephalus, infected shunt, abscess, herniation, elevated ICP Narrative Course CBC & BMP Diagram 01/05/17 23:[address] 01/05/17 2340 Signed Impressions: Service Date/Time: Friday, January 06, 2017 00:34 - CONCLUSION: Overall stable examination not significantly changed since 2014. Isac Hutchinson MD Shunt Study (Imaging) 01/05/17 0000 Signed Impressions: Service Date/Time: Friday, January 06, 2017 00:27 - CONCLUSION: Intact shunt. Isac Hutchinson MD Upon reassessment at 1259 am: the patient is resting comfortably and feels better, is alert and in no distress. The patients results and examination findings were discussed. The repeat examination is unremarkable and benign. The history, exam, diagnostic testing, and current condition do not suggest any significant pathology to warrant further testing, continued ED treatment, admission, or surgical evaluation at this point. The vital signs have been stable. The patient does not have uncontrollable pain, intractable vomiting, or other significant symptoms. The patient's condition is stable and appropriate for discharge. The patient will pursue further outpatient evaluation with a primary care physician or other designated or consulting physician as indicated in the discharge instructions. The patient expressed understanding and was agreeable with this plan. Diagnosis Primary Impression: Cephalgia Qualified Code: R51 - Nonintractable headache, unspecified chronicity pattern , unspecified headache type Additional Impression: History of ventricular shunt Referrals: Neurosurgeon 2 days Additional Instructions: You have a choice when it comes to health care, and we are glad that you chose [facility]. Hopefully, we have met your expectations on today's visit. You are welcome to return to [facility] at any time, as we are committed to meeting the health care needs of our community. Med/Other Pt SpecificInfo: No Change to Meds Disposition: 01 DISCHARGE HOME Condition: Stable Lance Rico MD Jan 06, 2017 01:01
== END 2017-01-06 01:30 | disposition home or self-care (01) ==
LOC: NEPE 21:00
DX: R51 Headache (principal); Z98.2 Presence of cerebrospinal fluid drainage device; Z86.69 Personal history of other diseases of the nervous system and sense organs; Z87.39 Personal history of other diseases of the musculoskeletal system and connective tissue
CPT/HCPCS: 70250; 70450; 71010; 72040; 74000; 80048; 85025; 96374; 96375; 99285; J0780; J1200

== ENCOUNTER 2017-01-06 22:55 | Emergency (ER) | payer OTHER ==
[~2017-01-06] VITALS: Ht 160 cm; Wt 90.0 kg
[2017-01-06 22:57] VITALS: BP 129/76; PULSE 91; RESP 16; TEMP 98.6; O2SAT 100
== END 2017-01-07 02:38 | disposition left against medical advice (07) ==
LOC: NED 22:55
DX: R05 Cough (principal)
CPT/HCPCS: 99281

== ENCOUNTER 2017-01-26 08:38 | Emergency (ER) | payer OTHER ==
[~2017-01-26] VITALS: Ht 160 cm; Wt 90.0 kg
[2017-01-26 08:39] VITALS: BP 134/79; PULSE 88; RESP 16; TEMP 98.2; O2SAT 98
[2017-01-26] MEDS ORDERED: HYDR-3533 PO (08:56)
[2017-01-26] MEDS ORDERED: CEPH-460 PO (09:14)
--- NOTE | 2017-01-26 09:14 | PD ---
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 She says she feels 2 lumps and they' re tender, constant, moderate severity. She's had no discharge from her nipples. She denies any fevers or chills. She also states she slipped and fell this morning. She has a history of chronic back pain for which she sees pain management and she says her entire back hurts. She came in mostly because she was concerned about her breast. PFSH Past Medical History Hx Anticoagulant Therapy: No Arthritis: No Asthma: No Autoimmune Disease: No Blood Disorders: No Anxiety: No Depression: No Heart Rhythm Problems: No Cancer: No Cardiovascular Problems: Yes High Cholesterol: No Chemotherapy: No Chest Pain: Yes Congestive Heart Failure: No COPD: No Cerebrovascular Accident: No Cystic Fibrosis: No Diabetes: No Diminished Hearing: No Endocrine: No Gastrointestinal Disorders: No GERD: No Genitourinary: No Headaches: Yes Hiatal Hernia: No Heparin Induced Thrombocytopen: No Hypertension: No Immune Disorder: No Implanted Vascular Access Dvce: Yes Kidney Stones: No Musculoskeletal: Yes (CHRONIC BACK PAIN ) Neurologic: Yes ( AV SHUNT PLACED IN 2011) Psychiatric: No Reproductive: No Respiratory: Yes (bronchitis) Immunizations Current: No Migraines: Yes Pneumonia: Yes (04/13/2012) Radiation Therapy: No Renal Failure: No Seizures: No Sickle Cell Disease: No Sleep Apnea: No Thyroid Disease: No Ulcer: No Tetanus Vaccination: Unknown Influenza Vaccination: No PNEUMOCCOCAL Vaccine (Year): 2 ?: Not Menopausal: No : 0 Para: 0 Past Surgical History Abdominal Surgery: No AICD: No Arteriovenous Shunt: Yes (AT 5 MONTHS OLD) Body Medical Devices: CEPHALIC SHUNT AT 5 MONTHS OLD / 16-17 sx since Cardiac Surgery: No Ear Surgery: No Endocrine Surgery: No Eye Surgery: No Genitourinary Surgery: No Gynecologic Surgery: No Insulin Pump: No Joint Replacement: No Neurologic Surgery: Yes (CEPHALIC SHUNT) Oral Surgery: No Pacemaker: No Thoracic Surgery: No Other Surgery: Yes Social History Alcohol Use: No Tobacco Use: No Substance Use: No Allergies-Medications (Allergen,Severity, Reaction): Coded Allergies: Codeine (Verified Allergy, Severe, Nausea/Vomiting, 01/26/17) Naproxen (Verified Allergy, Severe, Itching, 01/26/17) Tylenol #3 (Verified Allergy, Severe, 01/26/17) Ultram (Verified Allergy, Severe, Itching, 01/26/17) *MDRO Multi-Drug Resistant Organism (Verified Adverse Reaction, Unknown, ) 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 HEAD: Atraumatic. Normocephalic. EYES: Pupils equal and round. No injection or drainage. ENT: Moist mucous membranes NECK: Trachea midline. Breasts: 3 cm firm tender area at 3:00 involving the left breast with no skin changes, no discharge from the nipple and no warmth. CARDIOVASCULAR: Regular rate and rhythm. No murmur appreciated. RESPIRATORY: Clear to auscultation. Breath sounds equal bilaterally. GASTROINTESTINAL: Abdomen soft, non-tender, nondistended. MUSCULOSKELETAL: No obvious deformities. NEUROLOGICAL: Awake and alert. No obvious cranial nerve deficits. Moving all extremities. PSYCHIATRIC: Appropriate mood and affect; insight and judgment normal. Data Data Last Documented VS Vital Signs Date Time Temp Pulse Resp B/P Pulse Ox O2 Delivery O2 Flow Rate FiO2 01/26/17 08:39 98.2 88 16 134/79 98 MDM Medical Decision Making Medical Screen Exam Complete: Yes Emergency Medical Condition: Yes Interpretation(s) Afebrile, no tachycardia, normotensive Differential Diagnosis Mastitis, fibrocystic breast changes, cancer Narrative Course This is a 26-year-old female who presents to the emergency department with a tender area in her left breast. I suspect she is early mastitis although she is not nursing currently. Plan for anabiotic's and warm compresses on the breast. I explained to her that were very limited in our to diagnose breast pathology in the emergency department and it's very important that she follow- up with her primary care physician and she expressed understanding. In regards to her fall, she says her pain is similar to her chronic pain but a little bit worse. I offered her imaging of her shunt but she declined as she was more concerned with her breast. Diagnosis Primary Impression: Breast lump Patient Instructions: General Instructions Additional Instructions: If you develop fever, increasing redness, warmth, or spreading of your infection , or severe pain return to the emergency department immediately as you may require antibiotics through your IV. Complete your course of antibiotics as prescribed. It is very important that he follow-up with your primary care physician regarding a lump in her breast as we can't diagnose cancer or other breast problems in the emergency department. Med/Other Pt SpecificInfo: Prescription(s) given Scripts Cephalexin (Keflex)500 Mg Iub757 Mg PO Q12H 7 Days Ref 0 Prov:Rachael Marcano MD 01/26/17 Disposition: 01 DISCHARGE HOME Condition: Stable Rachael Marcano MD Jan 26, 2017 09:14
[2017-01-26 09:33] VITALS: BP 124/71
== END 2017-01-26 09:34 | disposition home or self-care (01) ==
LOC: NEPD 08:38
DX: N63 Unspecified lump in breast (principal); Z98.2 Presence of cerebrospinal fluid drainage device; W01.0XXA Fall on same level from slipping, tripping and stumbling without subsequent striking against object, initial encounter
CPT/HCPCS: 99283

== ENCOUNTER 2017-02-09 07:31 | Emergency (ER) | payer OTHER ==
[~2017-02-09] VITALS: Ht 160 cm; Wt 90.0 kg
[~2017-02-09 07:31] MED LIST changes: +CEPH-460 PO; -VENTAER INH; -ZOFR4TAB3 SL
[2017-02-09 07:33] VITALS: BP 124/62; PULSE 83; RESP 15; TEMP 98.4; O2SAT 98
--- NOTE | 2017-02-09 08:17 | PD ---
HPI Chief Complaint: Medical Clearance Time Seen by Provider: 07:44 Travel History International Travel<30 days: No Contact w/Intl Traveler<30days: No Traveled to known affect area: No History of Present Illness HPI 26-year-old female complains of headache, back pain, and left breast pain. Patient has history of hydrocephalus status post FANS CLERK shunt placement since she was 5-month-old. Patient has been seen by physician in [place] for routine follow-up. Patient was seen by physician in [place] recently and was told that the shunt is functioning well. Patient states that she started having headache for the past several days. Patient states that headache is aching headache front and back of the head. Patient denies any visual change. Patient denies any nausea vomiting. Patient denies any neck pain. Patient states that she has aching pain up her back. Patient has history of chronic back pain and has been seen by physician and on pain medication for the back in the past. Patient denies abdominal pain. Patient denies any fever chills. Patient was seen in emergency room 2 weeks ago for left breast pain. Patient was diagnosed with possible mastitis and given discussion for Keflex. Patient states that the pain got better however never cleared up completely. Patient states that the pain persists on the left breast. Patient also feeling lumps in the left breast. Patient has not seen any local physician for follow-up. PFSH Past Medical History Hx Anticoagulant Therapy: No Arthritis: No Asthma: No Autoimmune Disease: No Blood Disorders: No Anxiety: No Depression: No Heart Rhythm Problems: No Cancer: No Cardiovascular Problems: Yes High Cholesterol: No Chemotherapy: No Chest Pain: Yes Congestive Heart Failure: No COPD: No Cerebrovascular Accident: No Cystic Fibrosis: No Diabetes: No Diminished Hearing: No Endocrine: No Gastrointestinal Disorders: No GERD: No Genitourinary: No Headaches: Yes Hiatal Hernia: No Heparin Induced Thrombocytopen: No Hypertension: No Immune Disorder: No Implanted Vascular Access Dvce: Yes Kidney Stones: No Musculoskeletal: Yes (CHRONIC BACK PAIN ) Neurologic: Yes ( AV SHUNT PLACED IN 2011) Psychiatric: No Reproductive: No Respiratory: Yes Immunizations Current: No Migraines: Yes Pneumonia: Yes (04/13/2012) Radiation Therapy: No Renal Failure: No Seizures: No Sickle Cell Disease: No Sleep Apnea: No Thyroid Disease: No Ulcer: No PNEUMOCCOCAL Vaccine (Year): 2 ?: Not LMP: 01/26/17 Menopausal: No : 0 Para: 0 Past Surgical History Abdominal Surgery: No AICD: No Arteriovenous Shunt: Yes (AT 5 MONTHS OLD) Body Medical Devices: CEPHALIC SHUNT AT 5 MONTHS OLD / 16-17 sx since Cardiac Surgery: No Ear Surgery: No Endocrine Surgery: No Eye Surgery: No Genitourinary Surgery: No Gynecologic Surgery: No Insulin Pump: No Joint Replacement: No Neurologic Surgery: Yes (CEPHALIC SHUNT) Oral Surgery: No Pacemaker: No Thoracic Surgery: No Other Surgery: Yes Social History Alcohol Use: No Tobacco Use: No Substance Use: No Allergies-Medications (Allergen,Severity, Reaction): Coded Allergies: Codeine (Verified Allergy, Severe, Nausea/Vomiting, 02/09/17) Naproxen (Verified Allergy, Severe, Itching, 02/09/17) Tylenol #3 (Verified Allergy, Severe, 02/09/17) Ultram (Verified Allergy, Severe, Itching, 02/09/17) *MDRO Multi-Drug Resistant Organism (Verified Adverse Reaction, Unknown, ) 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) Reported Meds & Prescriptions Reported Meds & Active Scripts Active No Active Prescriptions or Reported Medications Review of Systems General / Constitutional: No: Fever Eyes: No: Visual changes HENT: Positive: Headaches Cardiovascular: No: Chest Pain or Discomfort Respiratory: No: Shortness of Breath Gastrointestinal: No: Abdominal Pain Genitourinary: No: Dysuria Musculoskeletal: No: Pain Skin: No Rash Neurologic: No: Weakness Psychiatric: No: Depression Endocrine: No: Polydipsia Hematologic/Lymphatic: No: Easy Bruising Physical Exam Narrative GENERAL: Well-nourished, well-developed patient. SKIN: Focused skin assessment warm/dry. HEAD: Normocephalic. EYES: No scleral icterus. No injection or drainage. Pupils 3 mm equal reactive. NECK: Supple, trachea midline. No JVD or lymphadenopathy. No meningismus. CARDIOVASCULAR: Regular rate and rhythm without murmurs, gallops, or rubs. RESPIRATORY: Breath sounds equal bilaterally. No accessory muscle use. GASTROINTESTINAL: Abdomen soft, non-tender, nondistended. MUSCULOSKELETAL: No cyanosis, or edema. BACK: Patient has mild diffuse tenderness over the thoracic lumbar area, without obvious deformity. No CVA tenderness. Examination of the left pressure was diffuse fibrocystic structure. Mild tenderness on palpation. No redness no heat no nipple discharge. No axilla adenopathy. Neurologic exam normal. Data Data Last Documented VS Vital Signs Date Time Temp Pulse Resp B/P Pulse Ox O2 Delivery O2 Flow Rate FiO2 02/09/17 08:52 73 20 111/58 100 Room Air 02/09/17 07:33 98.4 Orders Complete Blood Count With Diff (02/09/17 07:55) Comprehensive Metabolic Panel (02/09/17 07:55) Prothrombin Time / Inr (Pt) (02/09/17 07:55) Act Partial Throm Time (Ptt) (02/09/17 07:55) Ct Brain W/O Iv Contrast(Rout) (02/09/17 07:55) Iv Access Insert/Monitor (02/09/17 07:55) Ed Urine Pregnancytest Poc (02/09/17 07:55) Shunt Series (02/09/17 ) Labs Laboratory Tests Test 02/09/17 08:25 White Blood Count 8.7 TH/MM3 Red Blood Count 4.86 MIL/MM3 Hemoglobin 12.1 GM/DL Hematocrit 37.2 % Mean Corpuscular Volume 76.5 FL Mean Corpuscular Hemoglobin 24.9 PG Mean Corpuscular Hemoglobin 32.6 % Concent Red Cell Distribution Width 14.6 % Platelet Count 335 TH/MM3 Mean Platelet Volume 7.7 FL Neutrophils (%) (Auto) 75.2 % Lymphocytes (%) (Auto) 17.6 % Monocytes (%) (Auto) 6.0 % Eosinophils (%) (Auto) 0.9 % Basophils (%) (Auto) 0.3 % Neutrophils # (Auto) 6.5 TH/MM3 Lymphocytes # (Auto) 1.5 TH/MM3 Monocytes # (Auto) 0.5 TH/MM3 Eosinophils # (Auto) 0.1 TH/MM3 Basophils # (Auto) 0.0 TH/MM3 CBC Comment DIFF FINAL Differential Comment Prothrombin Time 10.2 SEC Prothromb Time International 0.9 RATIO Ratio Activated Partial 24.7 SEC Thromboplast Time Sodium Level 140 MEQ/L Potassium Level 4.2 MEQ/L Chloride Level 106 MEQ/L Carbon Dioxide Level 25.2 MEQ/L Anion Gap 9 MEQ/L Blood Urea Nitrogen 9 MG/DL Creatinine 0.69 MG/DL Estimat Glomerular Filtration 126 ML/MIN Rate Random Glucose 93 MG/DL Calcium Level 9.2 MG/DL Total Bilirubin 0.3 MG/DL Aspartate Amino Transf 17 U/L (AST/SGOT) Alanine Aminotransferase 30 U/L (ALT/SGPT) Alkaline Phosphatase 79 U/L Total Protein 8.1 GM/DL Albumin 3.8 GM/DL MDM Medical Decision Making Medical Screen Exam Complete: Yes Emergency Medical Condition: Yes Interpretation(s) Last Impressions Head CT 02/09/17 0755 Signed Impressions: Service Date/Time: Thursday, February 09, 2017 09:09 - CONCLUSION: Normal examination status post right-sided shunt placement. Right lateral ventricle is decompressed. Ritesh De Guzman MD Shunt Study (Imaging) 02/09/17 0000 Signed Impressions: Service Date/Time: Thursday, February 09, 2017 08:42 - CONCLUSION: Intact shunt. Ritesh De Guzman MD 9:50 AM. CBC within normal limit. CMP within normal limit. Differential Diagnosis Differential diagnosis including migraine headache, tension headache, cluster headache, shunt malfunction, fibrocystic disease of breath, mastitis, breast tumor, musculoskeletal back pain. Narrative Course 26-year-old female with headache, back pain, persistent left breast lump with pain. History of hydrocephalus status post FANS CLERK shunt placement. Diagnosis Primary Impression: Cephalgia Qualified Code: R51 - Acute nonintractable headache, unspecified headache type Additional Impressions: Mastalgia Back strain Qualified Code: S39.012A - Back strain, initial encounter Patient Instructions: General Instructions Additional Instructions: Follow-up with personal physician for shunt recheck. Take medication as needed for headache and back pain. 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 Return if worse. Med/Other Pt SpecificInfo: Prescription(s) given Scripts Methocarbamol (Robaxin)750 Mg [id number] Mg PO QID #40 TAB Ref 0 Prov:Ray Riojas MD 02/09/17 Lounmsnpho-Cphqhbxxjqlrb-Mqevilli (Fioricet)50-300-40 Mg Cap1-2 Cap PO Q6H PRN ( HEADACHE) #20 CAP Ref 0 Prov:Ray Riojas MD 02/09/17 Disposition: 01 DISCHARGE HOME Condition: Stable Ray Riojas MD Feb 09, 2017 08:17
[2017-02-09 08:39] LABS: AUTOMATED NEUTROPHIL # 6.5 TH/MM3 (1.8-7.7); BASOPHIL % 0.3 % (0.0-2.0); EOSINOPHIL # 0.1 TH/MM3 (0-0.4); EOSINOPHIL % 0.9 % (0.0-4.0); HEMATOCRIT 37.2 % (35.0-46.0); HEMO FLAGS DIFF FINAL; LYMPH % 17.6 % (9.0-44.0); LYMPHOCYTE # 1.5 TH/MM3 (1.0-4.8); MEAN CELL VOLUME 76.5 FL (80.0-100.0); MEAN CORPUSCULAR HEMOGLOBIN 24.9 PG (27.0-34.0); MEAN CORPUSCULAR HGB CONC 32.6 % (32.0-36.0); NEUT % 75.2 % (16.0-70.0); PLATELET COUNT 335 TH/MM3 (150-450); RED BLOOD COUNT 4.86 MIL/MM3 (4.00-5.30); RED CELL DISTRIBUTION WIDTH 14.6 % (11.6-17.2); WHITE BLOOD COUNT 8.7 TH/MM3 (4.0-11.0)
[2017-02-09 08:48] LABS: APTT (PATIENT) 24.7 SEC (24.3-30.1); INTERNATIONAL NORMALIZED RATIO 0.9 RATIO; PROTHROMBIN TIME - PATIENT 10.2 SEC (9.8-11.6)
[2017-02-09 08:52] VITALS: BP 111/58; PULSE 73; RESP 20; O2SAT 100
[2017-02-09 09:01] LABS: ALKALINE PHOSPHATASE 79 U/L (45-117); TOTAL BILIRUBIN ADULT 0.3 MG/DL (0.2-1.0)
[2017-02-09 09:10] LABS: ALT (GPT) 30 U/L (10-53); ANION GAP 9 MEQ/L (5-15); AST (GOT) 17 U/L (15-37); BICARBONATE 25.2 MEQ/L (21.0-32.0); BLOOD UREA NITROGEN 9 MG/DL (7-18); CHLORIDE 106 MEQ/L (98-107); GLOMERULAR FILTRATION RATE 126 ML/MIN (>89); POTASSIUM 4.2 MEQ/L (3.5-5.1); SODIUM (NA) 140 MEQ/L (136-145)
--- NOTE | 2017-02-09 09:14 | RADRPT ---
EXAM DATE/TIME: 02/09/2017 08:42 [facility] COMPARISON: No previous studies available for comparison. INDICATIONS : Headache for 1 month. MEDICAL HISTORY : Cardiovascular disease. Hydrocephalus. 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 ENCOUNTER: Subsequent ACUITY: 1 month PAIN SCORE: 5/10 LOCATION: skull FINDINGS: Radiograph of the skull, neck, chest and abdomen performed to evaluate shunt patency. The shunt cath eter is seen entering the <right posterior region with its tip in the region of the body of the later al ventricle. The catheter is continuous in its course terminating in the lower pelvis No catheter disruption is id entified. The visualized heart, lungs and abdominal structures are intact. CONCLUSION: Intact shunt. Ritesh De Guzman MD on February 09, 2017 at 9:11 Board Certified Radiologist. This report was verified electronically.
--- NOTE | 2017-02-09 09:21 | RADRPT ---
EXAM DATE/TIME: 02/09/2017 09:09 [facility] COMPARISON: CT BRAIN W/O CONTRAST, January 06, 2017, 0:34. INDICATIONS : Cephalgia for two days. RADIATION DOSE: 56.35 CTDIvol (mGy) MEDICAL HISTORY : Cardiovascular disease. SURGICAL HISTORY : arteriovenous shunt ENCOUNTER: Initial ACUITY: 2 days PAIN SCALE: 10/10 LOCATION: Bilateral head TECHNIQUE: Multiple contiguous axial images were obtained of the head. Using automated exposure control and adj ustment of the mA and/or kV according to patient size, radiation dose was kept as low as reasonably a chievable to obtain optimal diagnostic quality images. DICOM format image data is available electro nically for review and comparison. FINDINGS: CEREBRUM: The patient is a right parietal shunt with its tip in the right lateral ventricle which is decompress ed. No evidence of midline shift, mass lesion, hemorrhage or acute infarction. The third ventricle r emains slightly to the right of midline I suspect chronic. No extra-axial fluid collections are seen. POSTERIOR FOSSA: The cerebellum and brainstem are intact. The 4th ventricle is midline. The cerebellopontine angle i s unremarkable. EXTRACRANIAL: The visualized portion of the orbits is intact. SKULL: The calvaria is intact. No evidence of skull fracture. CONCLUSION: Normal examination status post right-sided shunt placement. Right lateral ventricle is decompressed. Ritesh De Guzman MD on February 09, 2017 at 9:18 Board Certified Radiologist. This report was verified electronically.
[2017-02-09] MEDS ORDERED: ROBA750T PO (09:54)
[2017-02-09] MEDS ORDERED: BUTA1CAP PO (09:54)
== END 2017-02-09 10:31 | disposition home or self-care (01) ==
LOC: NEPE 07:31
DX: R51 Headache (principal); N64.4 Mastodynia; S39.012A Strain of muscle, fascia and tendon of lower back, initial encounter; N63 Unspecified lump in breast; Z86.79 Personal history of other diseases of the circulatory system; Z87.39 Personal history of other diseases of the musculoskeletal system and connective tissue; Z86.69 Personal history of other diseases of the nervous system and sense organs; X58.XXXA Exposure to other specified factors, initial encounter
CPT/HCPCS: 70250; 70450; 71010; 72040; 74000; 80053; 84703; 85025; 85610; 85730; 99284

== ENCOUNTER 2017-06-10 02:24 | Emergency (ER) | payer OTHER ==
[~2017-06-10] VITALS: Ht 162.6 cm; Wt 84.9 kg
[~2017-06-10 02:24] MED LIST changes: +BUTA1CAP PO; -CEPH-460 PO; -HYDR-3533 PO; +ROBA750T PO
[2017-06-10 02:27] VITALS: BP 130/70; PULSE 98; RESP 18; TEMP 99.2; O2SAT 99
[2017-06-10 03:00] VITALS: RESP 19; O2SAT 100
--- NOTE | 2017-06-10 03:10 | PD ---
HPI Chief Complaint: Headache Time Seen by Provider: 02:57 Travel History International Travel<30 days: No Contact w/Intl Traveler<30days: No Traveled to known affect area: No History of Present Illness HPI The patient is a 26 year old female who presents to the [facility] emergency department with a history of headaches, chest pain, and back pain associated with cold symptoms that began 3 days ago. She has had subjective fevers. She has had nausea without vomiting. She has a cough productive of yellow sputum. She has a yellow nasal discharge. She has had shortness of breath. She has a history of reactive airway and has used inhaler in the past. She is requesting a prescription for an inhaler. She denies any prior history of smoking. She cannot recall the name of her primary care physician. She is due to see her primary care physician again in June. She cannot recall when she last had her menstrual cycle as she is on Depo-Provera for control. The patient reports that she does have a chronic history of headaches and back pain. She denies being on any medication for this currently. She reports that her headaches are no different than usual. She denies having any vision changes. The patient does have a history of [employer] shunt status post revision a couple of years ago. She reports that she is due to see her neurosurgeon before the end of the year. She reports that she usually sees him one time per year. On review of systems, she denies having any neck pain, abdominal pain, diarrhea, urinary symptoms, or neurologic symptoms. [facility] Past Medical History Narrative Medical The patient's past medical history is significant for [employer] Shunt with last revision in the last few years. She sees her doctor once a year and is due for a visit coming up, chronic back pain, headaches, pneumonia, reactive airway. Hx Anticoagulant Therapy: No Arthritis: No Asthma: No Autoimmune Disease: No Blood Disorders: No Anxiety: No Depression: No Heart Rhythm Problems: No Cancer: No Cardiovascular Problems: Yes High Cholesterol: No Chemotherapy: No Chest Pain: Yes Congestive Heart Failure: No COPD: No Cerebrovascular Accident: No Cystic Fibrosis: No Diabetes: No Diminished Hearing: No Endocrine: No Gastrointestinal Disorders: No GERD: No Genitourinary: No Headaches: Yes Hiatal Hernia: No Heparin Induced Thrombocytopen: No Hypertension: No Immune Disorder: No Implanted Vascular Access Dvce: Yes Kidney Stones: No Musculoskeletal: Yes (CHRONIC BACK PAIN ) Neurologic: Yes (HYDROCEPHALUS) Psychiatric: No Reproductive: No Respiratory: Yes Immunizations Current: Yes Migraines: Yes Pneumonia: Yes (04/13/2012) Radiation Therapy: No Renal Failure: No Seizures: No Sickle Cell Disease: No Sleep Apnea: No Thyroid Disease: No Ulcer: No PNEUMOCCOCAL Vaccine (Year): 2 ?: Not LMP: on Depo Provera. Menopausal: No : 0 Para: 0 Past Surgical History Narrative Surgical The patient's past surgical history is significant for [employer] shunts with multiple replacements and revisions, Abdominal Surgery: No AICD: No Arteriovenous Shunt: Yes (AT 5 MONTHS OLD) Body Medical Devices: CEPHALIC SHUNT AT 5 MONTHS OLD / 16-17 sx since Cardiac Surgery: No Ear Surgery: No Endocrine Surgery: No Eye Surgery: No Genitourinary Surgery: No Gynecologic Surgery: No Insulin Pump: No Joint Replacement: No Neurologic Surgery: Yes (CEPHALIC SHUNT) Oral Surgery: No Pacemaker: No Thoracic Surgery: No Other Surgery: Yes Social History Alcohol Use: No Tobacco Use: No Substance Use: No Allergies-Medications (Allergen,Severity, Reaction): Coded Allergies: acetaminophen (Unverified Allergy, Severe, 06/10/17) codeine (Unverified Allergy, Severe, 06/10/17) naproxen (Unverified Allergy, Severe, Itching, 06/10/17) tramadol (Unverified Allergy, Severe, Itching, 06/10/17) *MDRO Multi-Drug Resistant Organism (Verified Adverse Reaction, Unknown, 06/10/17) 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) Reported Meds & Prescriptions Reported Meds & Active Scripts Active No Active Prescriptions or Reported Medications Depo Provera Review of Systems Except as stated in HPI: all other systems reviewed are Neg General / Constitutional: No: Fever Eyes: No: Visual changes HENT: Positive: Headaches, Rhinorrhea, Congestion, No: Neck Pain Cardiovascular: Positive: Chest Pain or Discomfort, Dyspnea on exertion Respiratory: Positive: Cough, No: Shortness of Breath Gastrointestinal: Positive: Nausea, No: Vomiting, Diarrhea, Abdominal Pain Genitourinary: No: Dysuria Musculoskeletal: Positive: Myalgias, Pain Skin: No Rash Neurologic: No: Weakness Psychiatric: No: Depression Endocrine: No: Polydipsia Hematologic/Lymphatic: No: Easy Bruising Physical Exam Narrative General: The patient is a well-developed well-nourished female in no acute distress. Head and Neck exam: Head is normocephalic atraumatic. Eyes: EOMI, pupils are equal round and reactive to light. Nose: Midline septum with erythematous edematous nasal mucosa and a white nasal discharge. Sinuses: The patient reports bilateral frontal sinus tenderness on palpation. Mouth: Dentition unremarkable. Moist mucus membranes. Posterior oropharynx is not erythematous. No tonsillar hypertrophy. Uvula midline. Airway patent. Neck: No palpable lymphadenopathy. No nuchal rigidity. No thyromegaly. Cardiovascular: Regular rate and rhythm without murmurs, gallops, or rubs. Lungs: Soft expiratory wheezes are audible. No rhonchi, no crackles. No accessory muscle use. No tripoding. No paroxysmal abdominal breathing. Abdomen: Soft, without tenderness to palpation in all 4 quadrants of the abdomen. No guarding, rebound, or rigidity. Normal bowel sounds are audible. No tenderness on palpation of McBurney's point. Extremities: No clubbing, cyanosis, or edema. 2+ pulses in all 4 extremities. No calf tenderness on palpation. Back: No spinous process tenderness to palpation. No costovertebral angle tenderness to palpation. Neurologic Exam: Grossly nonfocal. Skin Exam: No rash noted. Intact skin that is warm and dry. Data Data Last Documented VS Vital Signs Date Time Temp Pulse Resp B/P (MAP) Pulse Ox O2 Delivery O2 Flow Rate FiO2 06/10/17 05:50 91 16 135/86 (102) 98 Room Air 06/10/17 03:36 21 06/10/17 02:27 99.2 Orders Orders Albuterol-Ipratropium Neb (Duoneb Neb) (06/10/17 03:15) Complete Blood Count With Diff (06/10/17 03:13) Basic Metabolic Panel (Bmp) (06/10/17 03:13) Chest, Single Ap (06/10/17 03:13) Iv Access Insert/Monitor (06/10/17 03:13) Ecg Monitoring (06/10/17 03:13) Oximetry (06/10/17 03:13) Ed Urine Pregnancytest Poc (06/10/17 03:13) Acetaminophen (Tylenol) (06/10/17 03:15) Influenzae A/B Antigen (06/10/17 03:13) Ondansetron Inj (Zofran Inj) (06/10/17 03:15) Sodium Chlor 0.9% 1000 Ml Inj (Ns 1000 M (06/10/17 04:30) Ketorolac Inj (Toradol Inj) (06/10/17 04:30) Ceftriaxone Inj (Rocephin Inj) (06/10/17 04:30) Azithromycin Inj (Zithromax Inj) (06/10/17 04:30) Ct Brain W/O Iv Contrast(Rout) (06/10/17 05:23) Prochlorperazine Inj (Compazine Inj) (06/10/17 06:00) Ct Thorax/ Chest W Iv Contrast (06/10/17 04:45) Iohexol 350 Inj (Omnipaque 350 Inj) (06/10/17 06:48) Labs Laboratory Tests Test 06/10/17 03:20 06/10/17 05:12 White Blood Count 17.6 TH/MM3 Red Blood Count 4.64 MIL/MM3 Hemoglobin 12.2 GM/DL Hematocrit 37.0 % Mean Corpuscular Volume 79.7 FL Mean Corpuscular Hemoglobin 26.2 PG Mean Corpuscular Hemoglobin Concent 32.9 % Red Cell Distribution Width 14.7 % Platelet Count 353 TH/MM3 Mean Platelet Volume 8.7 FL Neutrophils (%) (Auto) 78.2 % Lymphocytes (%) (Auto) 15.5 % Monocytes (%) (Auto) 5.4 % Eosinophils (%) (Auto) 0.7 % Basophils (%) (Auto) 0.2 % Neutrophils # (Auto) 13.8 TH/MM3 Lymphocytes # (Auto) 2.7 TH/MM3 Monocytes # (Auto) 0.9 TH/MM3 Eosinophils # (Auto) 0.1 TH/MM3 Basophils # (Auto) 0.0 TH/MM3 CBC Comment DIFF FINAL Differential Comment Blood Urea Nitrogen 10 MG/DL Creatinine 0.56 MG/DL Random Glucose 96 MG/DL Calcium Level 8.1 MG/DL Sodium Level 141 MEQ/L Potassium Level 3.8 MEQ/L Chloride Level 112 MEQ/L Carbon Dioxide Level 19.0 MEQ/L Anion Gap 10 MEQ/L Estimat Glomerular Filtration Rate 161 ML/MIN MDM Medical Decision Making Medical Screen Exam Complete: Yes Emergency Medical Condition: Yes Medical Record Reviewed: Yes Interpretation(s) Vital Signs Date Time Temp Pulse Resp B/P (MAP) Pulse Ox O2 Delivery O2 Flow Rate FiO2 06/10/17 02:27 99.2 98 18 130/70 (90) 99 Room Air Differential Diagnosis Pneumonia, versus bronchitis with reactive airway, versus influenza Narrative Course During the course of the patients emergency department visit, the patients history, examination, and differential diagnosis were reviewed with the patient. The patient was placed on a classroom monitor with oximetry and frequent blood pressure monitoring. The patient had IV access obtained and blood work sent for analysis. The patient had an ECG done on arrival. The patient's ECG reveals a sinus tachycardia heart rate of 101, no acute ST segment elevation, T waves are inverted in lead 3. QRS duration is 85 ms QTC is 373 ms. The patient was initially provided a DuoNeb 1. The patient was given Tylenol 650 by mouth 1 for pain, Zofran 4 mg IV for nausea. The patients laboratory studies were reviewed and remarkable for a white count of 17.6, hemoglobin 12.2, platelets 353 with 78.2 neutrophils. There is a metabolic profile is remarkable for a chloride of 112, CO2 19, calcium 8.1, influenza antigen was negative. Radiology studies were reviewed and remarkable for a chest x-ray that shows questionable partial collapse of the left lower lobe of the lung. The right lung is clear. I suspect that this is related to the patient's congestion and possible mucus plugging. A CT scan of the thorax has been ordered to further evaluate. When I went in to discuss the CT of the thorax being done with the patient, she asked if he CT scan of the brain was also given a be done. I explained that as her headaches are similar to prior headaches I would not recommend additional radiation that she's had multiple CT scans of the brain for her [employer] shunt. The patient reports that she would prefer to have the shunt reevaluated and a CT scan of the brain again done. This was ordered. The patient had continued pain and was given Toradol 15 mg IV. For suspected pneumonia and she was given Rocephin 1 g IV, 8 azithromycin 500 mg IV. The patient was given for nausea Compazine [address] scan of the brain showed no acute abnormality. CT scan of the thorax is pending at the conclusion of my shift. The patient's case was checked out to the oncoming emergency physician to disposition the patient after the results of the CT scan. I anticipate that the patient will be able to be discharged home with a prescription for a rescue inhaler and antibiotic. Referrals: Primary Care Physician 2 days Med/Other Pt SpecificInfo: Prescription(s) given Scripts Amoxicillin-Clavulanate (Augmentin) 875-125 Mg Tab 1 TAB PO BID for Infection, #20 TAB 0 Refills Prov: Berenice Peng MD 06/10/17 Albuterol Powder Inh (Proair Respiclick Inh) 90 Mcg/Act Aerp 2 PUFF INH Q6H Y for SHORTNESS OF BREATH, #1 INHALER 0 Refills Prov: Berenice Peng MD 06/10/17 Berenice Peng MD Jun 10, 2017 03:10
[2017-06-10] MEDS ORDERED: ONDANSETRON HCL 4 MG/2 ML VIAL IV ONE (03:15)
[2017-06-10] MEDS ORDERED: ACETAMINOPHEN 325 MG TAB PO ONE (03:15)
[2017-06-10] MEDS ORDERED: RESP: ALBUTEROL 2.5 MG/IPRATROPIUM 0.5 MG NEB (SCH) NEB ONE (03:15)
[2017-06-10 03:36] VITALS: O2SAT 99
--- NOTE | 2017-06-10 03:48 | RADRPT ---
EXAM DATE/TIME: 06/10/2017 03:21 [facility] COMPARISON: CHEST SINGLE AP, September 08, 2016, 8:29. INDICATIONS : Short of breath. MEDICAL HISTORY : None. SURGICAL HISTORY : None. ENCOUNTER: Initial ACUITY: 1 day PAIN SCORE: 0/10 LOCATION: Bilateral chest FINDINGS: A single view of the chest demonstrates an additional interface overlying the cardiac silhouette susp icious for left lower lobe partial collapse. The cardiomediastinal contours are unremarkable. [place] us structures are intact. Visualized shunt catheter in good position CONCLUSION: Questionable collapse left lower lobe , the right lung is clear. Ritesh De Guzman MD on June 10, 2017 at 3:46 Board Certified Radiologist. This report was verified electronically.
[2017-06-10 04:27] LABS: AUTOMATED NEUTROPHIL # 13.8 TH/MM3 (1.8-7.7); BASOPHIL % 0.2 % (0.0-2.0); EOSINOPHIL # 0.1 TH/MM3 (0-0.4); EOSINOPHIL % 0.7 % (0.0-4.0); LYMPH % 15.5 % (9.0-44.0); LYMPHOCYTE # 2.7 TH/MM3 (1.0-4.8); MEAN CELL VOLUME 79.7 FL (80.0-100.0); MEAN CORPUSCULAR HEMOGLOBIN 26.2 PG (27.0-34.0); MEAN CORPUSCULAR HGB CONC 32.9 % (32.0-36.0); MONO % 5.4 % (0.0-8.0); NEUT % 78.2 % (16.0-70.0); PLATELET COUNT 353 TH/MM3 (150-450); RED BLOOD COUNT 4.64 MIL/MM3 (4.00-5.30); RED CELL DISTRIBUTION WIDTH 14.7 % (11.6-17.2); WHITE BLOOD COUNT 17.6 TH/MM3 (4.0-11.0)
[2017-06-10] MEDS ORDERED: AZITHROMYCIN INJ 500 MG in SODIUM CHLOR 0.9% 250 ML INJ 250 ML IV ONE (04:30)
[2017-06-10] MEDS ORDERED: SODIUM CHLOR 0.9% 1000 ML INJ 1,000 ML IV ONE (04:30)
[2017-06-10] MEDS ORDERED: cefTRIAXone INJ 1,000 MG in SODIUM CHLORIDE 0.9% INJ 100 ML IV ONE (04:30)
[2017-06-10] MEDS ORDERED: KETOROLAC TROMETHAMINE 30 MG/ML (IVP) VIAL IV PUSH ONE (04:30)
[2017-06-10 04:31] LABS: HEMO FLAGS DIFF FINAL
[2017-06-10 05:50] VITALS: BP 135/86; PULSE 91; RESP 16; O2SAT 98
[2017-06-10] MEDS ORDERED: PROCHLORPERAZINE INJ 10 MG/2 ML VIAL IV PUSH ONE (06:00)
[2017-06-10 06:10] LABS: POTASSIUM 3.8 MEQ/L (3.5-5.1)
[2017-06-10] MEDS ORDERED: IOHEXOL 350 MG/ML 10 ML VIAL (for RAD DIAG) IVCONTRAST ONE (06:48)
--- NOTE | 2017-06-10 06:52 | RADRPT ---
EXAM DATE/TIME: 06/10/2017 06:41 [facility] COMPARISON: No previous studies available for comparison. INDICATIONS : Cephalgia. RADIATION DOSE: 43.39 CTDIvol (mGy) ; Patient motion MEDICAL HISTORY : Cardiovascular disease. Hydrocephalus. SURGICAL HISTORY : AV Shunt. ENCOUNTER: Initial ACUITY: 1 day PAIN SCALE: 7/10 LOCATION: cranial TECHNIQUE: Multiple contiguous axial images were obtained of the head. Using automated exposure control and adj ustment of the mA and/or kV according to patient size, radiation dose was kept as low as reasonably a chievable to obtain optimal diagnostic quality images. DICOM format image data is available electro nically for review and comparison. FINDINGS: CEREBRUM: There is a right parietal ventriculostomy catheter in good position . The ventricles are normal for age. No evidence of midline shift, mass lesion, hemorrhage or acute infarction. No extra-axial flui d collections are seen. POSTERIOR FOSSA: The cerebellum and brainstem are intact. The 4th ventricle is midline. The cerebellopontine angle i s unremarkable. EXTRACRANIAL: The visualized portion of the orbits is intact. SKULL: The calvaria is intact. No evidence of skull fracture. CONCLUSION: Normal examination with a stable right parietal ventriculostomy catheter. The ventricles are normal t o decreased in size. Ritesh De Guzman MD on June 10, 2017 at 6:49 Board Certified Radiologist. This report was verified electronically.
[2017-06-10] MEDS ORDERED: AUGM875T3 PO (06:58)
[2017-06-10] MEDS ORDERED: ALBU1AER5 INH (06:58)
--- NOTE | 2017-06-10 06:58 | RADRPT ---
EXAM DATE/TIME: 06/10/2017 06:46 [facility] COMPARISON: No previous studies available for comparison. INDICATIONS : Chest pain, cough and shortness of breath. IV CONTRAST: 75 cc Omnipaque 350 (iohexol) IV RADIATION DOSE: 6.02 CTDIvol (mGy) MEDICAL HISTORY : Cardiovascular disease. SURGICAL HISTORY : AV Shunt. ENCOUNTER: Initial ACUITY: 1 day PAIN SCALE: 2/10 LOCATION: chest TECHNIQUE: Volumetric scanning of the chest was performed. Using automated exposure control and adjustment of t he mA and/or kV according to patient size, radiation dose was kept as low as reasonably achievable to obtain optimal diagnostic quality images. DICOM format image data is available electronically for review and comparison. Follow-up recommendations for detected pulmonary nodules are based at a minimum on nodule size and pa tient risk factors according to Fleischner Society Guidelines. FINDINGS: LUNGS: There is no consolidation or pneumothorax. No concerning pulmonary nodule is visualized. PLEURA: There is no pleural thickening or pleural effusion. MEDIASTINUM: The heart and great vessels demonstrate no acute abnormality. There is no mediastinal or hilar lymph adenopathy. AXILLAE: Within normal limits. No lymphadenopathy. SKELETAL: Within normal limits for patient age. MISCELLANEOUS: The visualized upper abdominal organs demonstrate no acute abnormality. CONCLUSION: Normal examination. Ritesh De Guzman MD on June 10, 2017 at 6:56 Board Certified Radiologist. This report was verified electronically.
--- NOTE | 2017-06-10 18:35 | EKG ---
Date Performed: 06/10/2017 Time Performed: 02:58:57 PTAGE: 26 years EKG: SINUS TACHYCARDIA LOW QRS VOLTAGE IN PRECORDIAL LEADS NONSPECIFIC T-WAVE ABNORMALITY ABNORM AL RHYTHM ECG Compared to the PREVIOUS TRACING rate faster DOCTOR: Rosy Granger Interpretating Date/Time 06/10/2017 18:33:45
== END 2017-06-10 07:43 | disposition home or self-care (01) ==
LOC: NEPE 02:24
DX: R51 Headache (principal); R00.0 Tachycardia, unspecified; R07.9 Chest pain, unspecified; M54.9 Dorsalgia, unspecified; R50.9 Fever, unspecified; R05 Cough; R06.02 Shortness of breath; R94.31 Abnormal electrocardiogram [ECG] [EKG]; Z98.2 Presence of cerebrospinal fluid drainage device
CPT/HCPCS: 70450; 71010; 71260; 80048; 84703; 85025; 87804; 93005; 94664; 96365; 96367; 96375; 99285; J0456; J0696; J0780; J1885; J2405; J7030; J7050; Q9967

== ENCOUNTER 2017-06-30 12:00 | Emergency (ER) | payer OTHER ==
[~2017-06-30] VITALS: Ht 160 cm; Wt 85.0 kg
[~2017-06-30 12:00] MED LIST changes: +ALBU1AER5 INH; +AUGM875T3 PO; -BUTA1CAP PO; -ROBA750T PO
[2017-06-30 12:02] VITALS: BP 133/66; PULSE 80; RESP 18; TEMP 99.1; O2SAT 98
--- NOTE | 2017-06-30 12:42 | PD ---
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 Patient reports that since yesterday, she has not been feeling well since this morning. She reports that she woke up this morning, reports that she drank some soda and afterwards felt nauseous. Reports that she vomited twice and had 1 episode of diarrhea. Reports no sick contacts, denies any abdominal pain at this time. Patient reports that she was recently seen and treated in the emergency room on June 10, 2017 for similar symptoms. Patient reports that at that time, she had headache, chest pain and back pain associated with a cold. She had a CT of her head as she complained of headache which was benign and showed no acute abnormalities. Patient had a CT of her chest with IV contrast which was also benign. Patient was given a prescription for Augmentin which she completed for treatment of bronchitis. Patient reports that since then, she has been having on and off symptoms, reports that symptoms have exacerbated this morning with her nausea, vomiting and diarrhea. Patient with no chest pain or shortness breath at this time, no fever or chills, no other complaints. PFSH Past Medical History Hx Anticoagulant Therapy: No Arthritis: No Asthma: No Autoimmune Disease: No Blood Disorders: No Anxiety: No Depression: No Heart Rhythm Problems: No Cancer: No Cardiovascular Problems: Yes High Cholesterol: No Chemotherapy: No Chest Pain: Yes Congestive Heart Failure: No COPD: No Cerebrovascular Accident: No Cystic Fibrosis: No Diabetes: No Diminished Hearing: No Endocrine: No Gastrointestinal Disorders: No GERD: No Genitourinary: No Headaches: Yes Hiatal Hernia: No Heparin Induced Thrombocytopen: No Hypertension: No Immune Disorder: No Implanted Vascular Access Dvce: Yes Kidney Stones: No Musculoskeletal: Yes (CHRONIC BACK PAIN ) Neurologic: Yes (HYDROCEPHALUS) Psychiatric: No Reproductive: No Respiratory: Yes Immunizations Current: Yes Migraines: Yes Pneumonia: Yes (04/13/2012) Radiation Therapy: No Renal Failure: No Seizures: No Sickle Cell Disease: No Sleep Apnea: No Thyroid Disease: No Ulcer: No PNEUMOCCOCAL Vaccine (Year): 2 Menopausal: No : 0 Para: 0 Past Surgical History Abdominal Surgery: No AICD: No Arteriovenous Shunt: Yes (AT 5 MONTHS OLD) Body Medical Devices: CEPHALIC SHUNT AT 5 MONTHS OLD / 16-17 sx since Cardiac Surgery: No Ear Surgery: No Endocrine Surgery: No Eye Surgery: No Genitourinary Surgery: No Gynecologic Surgery: No Insulin Pump: No Joint Replacement: No Neurologic Surgery: Yes (CEPHALIC SHUNT) Oral Surgery: No Pacemaker: No Thoracic Surgery: No Other Surgery: Yes Social History Alcohol Use: No Tobacco Use: No Substance Use: No Allergies-Medications (Allergen,Severity, Reaction): Coded Allergies: acetaminophen (Unverified Allergy, Severe, 06/10/17) codeine (Unverified Allergy, Severe, 06/10/17) naproxen (Unverified Allergy, Severe, Itching, 06/10/17) tramadol (Unverified Allergy, Severe, Itching, 06/10/17) *MDRO Multi-Drug Resistant Organism (Verified Adverse Reaction, Unknown, 06/10/17) 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) Reported Meds & Prescriptions Reported Meds & Active Scripts Active Augmentin (Amoxicillin-Clavulanate) 875-125 Mg Tab 1 Tab PO BID Proair Respiclick Inh (Albuterol Sulfate) 90 Mcg/Act Aerp 2 Puff INH Q6H PRN Review of Systems General / Constitutional: No: Fever Eyes: No: Visual changes HENT: No: Headaches Cardiovascular: No: Chest Pain or Discomfort Respiratory: No: Shortness of Breath Gastrointestinal: Positive: Nausea, Vomiting, Diarrhea, No: Abdominal Pain Genitourinary: No: Dysuria Musculoskeletal: No: Pain Skin: No Rash Neurologic: No: Weakness Psychiatric: No: Depression Endocrine: No: Polydipsia Hematologic/Lymphatic: No: Easy Bruising Physical Exam Narrative GENERAL: No acute distress, nontoxic SKIN: Focused skin assessment warm/dry. HEAD: Atraumatic. Normocephalic. EYES: Pupils equal and round. No scleral icterus. No injection or drainage. ENT: No nasal bleeding or discharge. Mucous membranes pink and moist. NECK: Trachea midline. No JVD. CARDIOVASCULAR: Regular rate and rhythm. No murmur appreciated. RESPIRATORY: No accessory muscle use. Clear to auscultation. Breath sounds equal bilaterally. GASTROINTESTINAL: Abdomen soft, non-tender, nondistended. Hepatic and splenic margins not palpable. MUSCULOSKELETAL: No obvious deformities. No clubbing. No cyanosis. No edema. NEUROLOGICAL: Awake and alert. No obvious cranial nerve deficits. Motor grossly within normal limits. Normal speech. CN 2-12 grossly intact with no neurological deficits PSYCHIATRIC: Appropriate mood and affect; insight and judgment normal. Data Data Last Documented VS Vital Signs Date Time Temp Pulse Resp B/P (MAP) Pulse Ox O2 Delivery O2 Flow Rate FiO2 06/30/17 12:02 99.1 80 18 133/66 (88) 98 Room Air Orders Orders Complete Blood Count With Diff (06/30/17 12:09) Comprehensive Metabolic Panel (06/30/17 12:09) Lipase (06/30/17 12:09) Prothrombin Time / Inr (Pt) (06/30/17 12:09) Act Partial Throm Time (Ptt) (06/30/17 12:09) Urinalysis - C+S If Indicated (06/30/17 12:09) Ed Urine Pregnancytest Poc (06/30/17 12:09) Sodium Chlor 0.9% 1000 Ml Inj (Ns 1000 M (06/30/17 12:45) Ondansetron Inj (Zofran Inj) (06/30/17 12:45) Labs Laboratory Tests Test 06/30/17 12:48 06/30/17 13:45 White Blood Count 10.3 TH/MM3 Red Blood Count 4.84 MIL/MM3 Hemoglobin 12.6 GM/DL Hematocrit 37.6 % Mean Corpuscular Volume 77.6 FL Mean Corpuscular Hemoglobin 26.0 PG Mean Corpuscular Hemoglobin Concent 33.5 % Red Cell Distribution Width 14.4 % Platelet Count 344 TH/MM3 Mean Platelet Volume 7.7 FL Neutrophils (%) (Auto) 74.4 % Lymphocytes (%) (Auto) 19.1 % Monocytes (%) (Auto) 5.1 % Eosinophils (%) (Auto) 0.9 % Basophils (%) (Auto) 0.5 % Neutrophils # (Auto) 7.6 TH/MM3 Lymphocytes # (Auto) 2.0 TH/MM3 Monocytes # (Auto) 0.5 TH/MM3 Eosinophils # (Auto) 0.1 TH/MM3 Basophils # (Auto) 0.1 TH/MM3 CBC Comment DIFF FINAL Differential Comment Prothrombin Time 10.4 SEC Prothromb Time International Ratio 1.0 RATIO Activated Partial Thromboplast Time 25.2 SEC Blood Urea Nitrogen 6 MG/DL Creatinine 0.59 MG/DL Random Glucose 98 MG/DL Total Protein 8.3 GM/DL Albumin 3.5 GM/DL Calcium Level 9.0 MG/DL Alkaline Phosphatase 90 U/L Aspartate Amino Transf (AST/SGOT) 7 U/L Alanine Aminotransferase (ALT/SGPT) 21 U/L Total Bilirubin 0.2 MG/DL Sodium Level 138 MEQ/L Potassium Level 3.9 MEQ/L Chloride Level 108 MEQ/L Carbon Dioxide Level 24.7 MEQ/L Anion Gap 5 MEQ/L Estimat Glomerular Filtration Rate 150 ML/MIN Lipase 98 U/L Urine Color YELLOW Urine Turbidity CLEAR Urine pH 5.5 Urine Specific [place] 1.014 Urine Protein NEG mg/dL Urine Glucose (UA) NEG mg/dL Urine Ketones NEG mg/dL Urine Occult Blood TRACE Urine Nitrite NEG Urine Bilirubin NEG Urine Urobilinogen LESS THAN 2.0 MG/DL Urine Leukocyte Esterase NEG Urine RBC 2 /hpf Urine WBC 3 /hpf Urine Squamous Epithelial Cells 1 /hpf Urine Bacteria RARE /hpf Urine Hyaline Casts 1 /lpf Urine Mucus FEW /lpf Microscopic Urinalysis Comment CULT NOT INDICATED MDM Medical Decision Making Medical Screen Exam Complete: Yes Emergency Medical Condition: Yes Medical Record Reviewed: Yes Interpretation(s) Vital Signs Date Time Temp Pulse Resp B/P (MAP) Pulse Ox O2 Delivery O2 Flow Rate FiO2 06/30/17 12:02 99.1 80 18 133/66 (88) 98 Room Air Differential Diagnosis Gastritis, gastroenteritis, viral infection, electrolyte abnormality Narrative Course During the course of the patients emergency department visit, the patients history, examination, and differential diagnosis were reviewed with the patient. The patient was placed on a telemetry monitor with oximetry and frequent blood pressure monitoring. The patient had an IV access obtained and blood work sent for analysis. The patient was initially provided IVF as well as IV zofran The patients laboratory studies were reviewed and remarkable for" CBC & BMP Diagram 06/30/17 12:48 Total Protein 8.3 H, Albumin 3.5, Calcium Level 9.0, Alkaline Phosphatase 90, Aspartate Amino Transf (AST/SGOT) 7 L, Alanine Aminotransferase (ALT/SGPT) 21, Total Bilirubin 0.2 lft's wnl UA: trace blood, rare bacteria, negative nitrite, negative leuk esterase Patient reevaluated, patient feeling much better at this time. Signs and symptoms of when to return to the emergency room reviewed patient in detail, she will follow up with her primary care doctor and will return to emergency with needed. Diagnosis Primary Impression: Nausea vomiting and diarrhea Patient Instructions: General Instructions Additional Instructions: Please provide patient with a copy of their lab work and studies at discharge* * Please follow up with your primary care doctor in 2-3 days Return to the ER if symptoms worsen or progress Return to the ER as needed Med/Other Pt SpecificInfo: Prescription(s) given Scripts Ondansetron (Zofran) 4 Mg Tab 4 MG PO Q6HR Y for NAUSEA OR VOMITING, #20 TAB 0 Refills Prov: Dora Basilio DO 06/30/17 Disposition: 01 DISCHARGE HOME Condition: Stable Dora Basilio DO Jun 30, 2017 12:42
[2017-06-30] MEDS ORDERED: SODIUM CHLOR 0.9% 1000 ML INJ 1,000 ML IV ONE (12:45)
[2017-06-30] MEDS ORDERED: ONDANSETRON HCL 4 MG/2 ML VIAL IV PUSH ONE (12:45)
[2017-06-30 12:59] LABS: AUTOMATED NEUTROPHIL # 7.6 TH/MM3 (1.8-7.7); BASOPHIL # 0.1 TH/MM3 (0-0.2); BASOPHIL % 0.5 % (0.0-2.0); EOSINOPHIL # 0.1 TH/MM3 (0-0.4); EOSINOPHIL % 0.9 % (0.0-4.0); HEMATOCRIT 37.6 % (35.0-46.0); HEMO FLAGS DIFF FINAL; LYMPH % 19.1 % (9.0-44.0); MEAN CELL VOLUME 77.6 FL (80.0-100.0); MEAN CORPUSCULAR HGB CONC 33.5 % (32.0-36.0); MONO % 5.1 % (0.0-8.0); NEUT % 74.4 % (16.0-70.0); PLATELET COUNT 344 TH/MM3 (150-450); RED BLOOD COUNT 4.84 MIL/MM3 (4.00-5.30); RED CELL DISTRIBUTION WIDTH 14.4 % (11.6-17.2); WHITE BLOOD COUNT 10.3 TH/MM3 (4.0-11.0)
[2017-06-30 13:08] LABS: APTT (PATIENT) 25.2 SEC (24.3-30.1); PROTHROMBIN TIME - PATIENT 10.4 SEC (9.8-11.6)
[2017-06-30 13:34] LABS: ALT (GPT) 21 U/L (10-53); ANION GAP 5 MEQ/L (5-15); AST (GOT) 7 U/L (15-37); BICARBONATE 24.7 MEQ/L (21.0-32.0); BLOOD UREA NITROGEN 6 MG/DL (7-18); CHLORIDE 108 MEQ/L (98-107); GLOMERULAR FILTRATION RATE 150 ML/MIN (>89); POTASSIUM 3.9 MEQ/L (3.5-5.1); SODIUM (NA) 138 MEQ/L (136-145)
[2017-06-30 13:36] LABS: ALKALINE PHOSPHATASE 90 U/L (45-117); TOTAL BILIRUBIN ADULT 0.2 MG/DL (0.2-1.0)
[2017-06-30 13:59] LABS: BACTERIA, URINE RARE /hpf; BLOOD, URINE TRACE (NEG); COMMENT (UR) CULT NOT INDICATED; CULTURE IF INDICATED CULT NOT INDICATED; GLUCOSE,URINE NEG (NEG); HYALINE CAST, URINE 1 /lpf (RARE); KETONE, URINE NEG (NEG); MUCUS URINE FEW /lpf (OCC); NITRITE,URINE NEG (NEG); PH, URINE 5.5 (5.0-8.5); SQUAMOUS EPITHELIAL CELL URINE 1 /hpf (0-5); URINE COLOR YELLOW (YELLW/STRAW)
[2017-06-30] MEDS ORDERED: ZOFR4TAB PO (14:50)
[2017-06-30 15:43] VITALS: BP 123/68
== END 2017-06-30 15:44 | disposition home or self-care (01) ==
LOC: NEPD 12:00
DX: R11.2 Nausea with vomiting, unspecified (principal); R19.7 Diarrhea, unspecified; G91.9 Hydrocephalus, unspecified; Z98.2 Presence of cerebrospinal fluid drainage device; Z88.5 Allergy status to narcotic agent; Z88.6 Allergy status to analgesic agent; Z88.8 Allergy status to other drugs, medicaments and biological substances
CPT/HCPCS: 80053; 81001; 83690; 84703; 85025; 85610; 85730; 96374; 99285; J2405; J7030

== ENCOUNTER 2017-10-13 13:14 | Emergency (ER) | payer OTHER ==
[~2017-10-13 13:14] MED LIST changes: +ZOFR4TAB PO
[2017-10-13 13:44] VITALS: BP 131/62; PULSE 92; RESP 20; TEMP 99; O2SAT 100
--- NOTE | 2017-10-13 16:06 | PD ---
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 She presents today for acute onset vomiting with associated headache. Patient states she has not been recently ill. She has had no recent head trauma. She cannot recall her neurosurgeon. She has no other symptoms or focal deficits report. PFSH Past Medical History Hx Anticoagulant Therapy: No Arthritis: No Asthma: No Autoimmune Disease: No Blood Disorders: No Anxiety: No Depression: No Heart Rhythm Problems: No Cancer: No Cardiovascular Problems: Yes High Cholesterol: No Chemotherapy: No Chest Pain: Yes Congestive Heart Failure: No COPD: No Cerebrovascular Accident: No Cystic Fibrosis: No Diabetes: No Diminished Hearing: No Endocrine: No Gastrointestinal Disorders: No GERD: No Genitourinary: No Headaches: Yes Hiatal Hernia: No Heparin Induced Thrombocytopen: No Hypertension: No Immune Disorder: No Implanted Vascular Access Dvce: Yes Kidney Stones: No Musculoskeletal: Yes (CHRONIC BACK PAIN ) Neurologic: Yes (HYDROCEPHALUS) Psychiatric: No Reproductive: No Respiratory: Yes Immunizations Current: Yes Migraines: Yes Pneumonia: Yes (04/13/2012) Radiation Therapy: No Renal Failure: No Seizures: No Sickle Cell Disease: No Sleep Apnea: No Thyroid Disease: No Ulcer: No PNEUMOCCOCAL Vaccine (Year): 2 ?: Not LMP: DEPO Menopausal: No : 0 Para: 0 Past Surgical History Abdominal Surgery: No AICD: No Arteriovenous Shunt: Yes (AT 5 MONTHS OLD) Body Medical Devices: CEPHALIC SHUNT AT 5 MONTHS OLD / 16-17 sx since Cardiac Surgery: No Ear Surgery: No Endocrine Surgery: No Eye Surgery: No Genitourinary Surgery: No Gynecologic Surgery: No Insulin Pump: No Joint Replacement: No Neurologic Surgery: Yes (CEPHALIC SHUNT) Oral Surgery: No Pacemaker: No Thoracic Surgery: No Other Surgery: Yes Social History Alcohol Use: No Tobacco Use: No Substance Use: No Allergies-Medications (Allergen,Severity, Reaction): Coded Allergies: acetaminophen (Unverified Allergy, Severe, 06/10/17) codeine (Unverified Allergy, Severe, 06/10/17) naproxen (Unverified Allergy, Severe, Itching, 06/10/17) tramadol (Unverified Allergy, Severe, Itching, 06/10/17) *MDRO Multi-Drug Resistant Organism (Verified Adverse Reaction, Unknown, 06/10/17) 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 She is amatory with a non-ataxic gait. She appears nontoxic. She has even respirations. A slightly elevated heart rate. She moves all extremities and speaks clearly. Data Data Last Documented VS Vital Signs Date Time Temp Pulse Resp B/P (MAP) Pulse Ox O2 Delivery O2 Flow Rate FiO2 10/13/17 13:44 99.0 92 20 131/62 (85) 100 Orders Orders Complete Blood Count With Diff (10/13/17 13:46) Comprehensive Metabolic Panel (10/13/17 13:46) Urinalysis - C+S If Indicated (10/13/17 13:46) Ed Urine Pregnancytest Poc (10/13/17 13:46) MDM Medical Decision Making Medical Screen Exam Complete: Yes Emergency Medical Condition: Yes Medical Record Reviewed: Yes Differential Diagnosis Gastritis versus migraine headache versus CONTRACT SERVICEMAN shunt malfunction Narrative Course 27-year-old female presents to emergency department for evaluation. Patient appears nontoxic. Workup was initiated in triage. Prior to PEG placement, patient chooses to leave. AMA: The risks of leaving against medical advice without further evaluation treatment were discussed with the patient. These risks include cardiac dysfunction, cardiac dysrhythmia, possible heart attack, possible stroke or . The patient indicated understanding of these risks and appeared to have the capacity to make this decision. Diagnosis Primary Impression: Headache Additional Impression: History of ventricular shunt Disposition: 07 AGAINST MEDICAL ADVICE Condition: Stable Catarina Castro Oct 13, 2017 16:06
== END 2017-10-13 16:02 | disposition left against medical advice (07) ==
LOC: NED 13:14
DX: R51 Headache (principal); Z98.2 Presence of cerebrospinal fluid drainage device
CPT/HCPCS: 99281

== ENCOUNTER 2017-11-19 20:47 | Emergency (ER) | payer OTHER ==
[~2017-11-19] VITALS: Ht 175.3 cm; Wt 85.5 kg
[2017-11-19 20:57] VITALS: BP 148/64; PULSE 125; RESP 22; TEMP 98.9; O2SAT 100
[2017-11-19 21:17] VITALS: BP 139/79; PULSE 120; RESP 24; O2SAT 100
[2017-11-19] MEDS ORDERED: SODIUM CHLOR 0.9% 1000 ML INJ 1,000 ML IV SCH (21:23)
--- NOTE | 2017-11-19 21:23 | PD ---
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 She presents with family members for evaluation of chest pain. Symptoms started just prior to arrival. She describes it as a sharp generalized chest pain with associated dyspnea, wheezing. She reports that she used her albuterol inhaler approximately 12 times in the past hour symptoms persist which prompted evaluation. She reports that she was crying when symptoms started-she reports that her mother yesterday evening she has been upset about it all day. Denies cough, congestion, nausea or vomiting, abdominal pain. No history of cardiac illness. Denies any illicit drug use. Denies tobacco use. She has no other complaints. PFSH Past Medical History Hx Anticoagulant Therapy: No Arthritis: No Asthma: No Autoimmune Disease: No Blood Disorders: No Anxiety: No Depression: No Heart Rhythm Problems: No Cancer: No Cardiovascular Problems: Yes High Cholesterol: No Chemotherapy: No Chest Pain: Yes Congestive Heart Failure: No COPD: No Cerebrovascular Accident: No Cystic Fibrosis: No Diabetes: No Diminished Hearing: No Endocrine: No Gastrointestinal Disorders: No GERD: No Genitourinary: No Headaches: Yes Hiatal Hernia: No Heparin Induced Thrombocytopen: No Hypertension: No Immune Disorder: No Implanted Vascular Access Dvce: Yes Kidney Stones: No Musculoskeletal: Yes (CHRONIC BACK PAIN ) Neurologic: Yes (HYDROCEPHALUS) Psychiatric: No Reproductive: No Respiratory: Yes (asthma) Immunizations Current: Yes Migraines: Yes Pneumonia: Yes (04/13/2012) Radiation Therapy: No Renal Failure: No Seizures: No Sickle Cell Disease: No Sleep Apnea: No Thyroid Disease: No Ulcer: No Tetanus Vaccination: Unknown Influenza Vaccination: No PNEUMOCCOCAL Vaccine (Year): 2 ?: Not LMP: 11/15/17 Menopausal: No : 0 Para: 0 Past Surgical History Abdominal Surgery: No AICD: No Arteriovenous Shunt: Yes (AT 5 MONTHS OLD) Body Medical Devices: CEPHALIC SHUNT AT 5 MONTHS OLD / 16-17 sx since Cardiac Surgery: No Ear Surgery: No Endocrine Surgery: No Eye Surgery: No Genitourinary Surgery: No Gynecologic Surgery: No Insulin Pump: No Joint Replacement: No Neurologic Surgery: Yes (CEPHALIC SHUNT) Oral Surgery: No Pacemaker: No Thoracic Surgery: No Other Surgery: Yes Social History Alcohol Use: No Tobacco Use: No Substance Use: No Allergies-Medications (Allergen,Severity, Reaction): Coded Allergies: acetaminophen (Unverified Allergy, Severe, 06/10/17) codeine (Unverified Allergy, Severe, 06/10/17) naproxen (Unverified Allergy, Severe, Itching, 06/10/17) tramadol (Unverified Allergy, Severe, Itching, 06/10/17) *MDRO Multi-Drug Resistant Organism (Verified Adverse Reaction, Unknown, 06/10/17) 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 SKIN: Warm and dry. HEAD: Atraumatic. Normocephalic. EYES: Pupils equal and round. No scleral icterus. No injection or drainage. ENT: No nasal bleeding or discharge. Mucous membranes pink and moist. NECK: Trachea midline. No JVD. CARDIOVASCULAR: Regular rate and rhythm. No murmur appreciated. RESPIRATORY: No accessory muscle use. Clear to auscultation. Breath sounds equal bilaterally. No wheezing. Tachypneic. GASTROINTESTINAL: Abdomen soft, non-tender, nondistended. Hepatic and splenic margins not palpable. MUSCULOSKELETAL: No obvious deformities. No clubbing. No cyanosis. No edema. NEUROLOGICAL: Awake and alert. No obvious cranial nerve deficits. Motor grossly within normal limits. Normal speech. PSYCHIATRIC: Appropriate mood and affect; insight and judgment normal. Data Data Last Documented VS Vital Signs Date Time Temp Pulse Resp B/P (MAP) Pulse Ox O2 Delivery O2 Flow Rate FiO2 11/19/17 21:59 109 22 114/77 (89) 100 Room Air 11/19/17 20:57 98.9 Orders Orders Electrocardiogram (11/19/17 21:04) Complete Blood Count With Diff (11/19/17 21:04) Basic Metabolic Panel (Bmp) (11/19/17 21:04) Ckmb (Isoenzyme) Profile (11/19/17 21:04) Troponin I (11/19/17 21:04) Chest, Single Ap (11/19/17 21:04) Iv Access Insert/Monitor (11/19/17 21:04) Ecg Monitoring (11/19/17 21:04) Oxygen Administration (11/19/17 21:04) Oximetry (11/19/17 21:04) D-Dimer (11/19/17:19) Magnesium (Mg) (11/19/17 21:19) Prothrombin Time / Inr (Pt) (11/19/17 21:19) Act Partial Throm Time (Ptt) (11/19/17:19) Bilateral Bp Monitoring (11/19/17:) Lorazepam Inj (Ativan Inj) (11/19/17 21:30) Ed Urine Pregnancytest Poc (11/19/17 21:19) Sodium Chlor 0.9% 1000 Ml Inj (Ns 1000 M (11/19/17 21:23) Potassium Chloride (Kcl) (11/19/17 22:30) CKMB (11/19/17 21:32) CKMB% (11/19/17 21:32) Labs Laboratory Tests Test 11/19/17 21:32 White Blood Count 14.6 TH/MM3 Red Blood Count 4.77 MIL/MM3 Hemoglobin 12.1 GM/DL Hematocrit 36.1 % Mean Corpuscular Volume 75.6 FL Mean Corpuscular Hemoglobin 25.4 PG Mean Corpuscular Hemoglobin Concent 33.6 % Red Cell Distribution Width 14.1 % Platelet Count 362 TH/MM3 Mean Platelet Volume 8.1 FL Neutrophils (%) (Auto) 68.8 % Lymphocytes (%) (Auto) 22.1 % Monocytes (%) (Auto) 7.7 % Eosinophils (%) (Auto) 0.7 % Basophils (%) (Auto) 0.7 % Neutrophils # (Auto) 10.1 TH/MM3 Lymphocytes # (Auto) 3.2 TH/MM3 Monocytes # (Auto) 1.1 TH/MM3 Eosinophils # (Auto) 0.1 TH/MM3 Basophils # (Auto) 0.1 TH/MM3 CBC Comment DIFF FINAL Differential Comment Prothrombin Time 10.6 SEC Prothromb Time International Ratio 1.0 RATIO Activated Partial Thromboplast Time 24.5 SEC D-Dimer Quantitative (PE/DVT) 0.20 MG/L FEU Blood Urea Nitrogen 12 MG/DL Creatinine 0.87 MG/DL Random Glucose 114 MG/DL Calcium Level 9.3 MG/DL Sodium Level 143 MEQ/L Potassium Level 3.1 MEQ/L Chloride Level 110 MEQ/L Carbon Dioxide Level 22.5 MEQ/L Anion Gap 11 MEQ/L Estimat Glomerular Filtration Rate 96 ML/MIN Magnesium Level 2.0 MG/DL Total Creatine Kinase 145 U/L Troponin I LESS THAN 0.02 NG/ML MDM Medical Decision Making Medical Screen Exam Complete: Yes Emergency Medical Condition: Yes Medical Record Reviewed: Yes Differential Diagnosis Anxiety, asthma exacerbation, spontaneous pneumothorax, pulmonary embolism, acute coronary syndrome Narrative Course The patient was placed on ECG monitoring pulse oximetry. 12-lead EKG was obtained revealing sinus tachycardia with a rate of 104. Lab work, chest x-ray is been ordered. The patient use her albuterol inhaler 12 times in the past hour and is not currently wheezing but she is hyperventilating and appears quite anxious. Therefore 1 mg Ativan has been ordered. Chest x-ray reveals no acute abnormalities. CBC reveals WBC count of 14.6, likely stress reaction. D-dimer is within normal limits. Cardiac enzymes are negative. Potassium is 3.1, therefore 40 mEq oral potassium chloride ordered. Upon reexamination the patient feels significantly improved after administration of Ativan, she appears much more calm. I suspect her symptoms are secondary to anxiety/potentially some wheezing prior to arrival. At this point in time the plan is to discharge the patient home. Diagnosis Primary Impression: Anxiety Additional Impressions: Asthma Atypical chest pain Additional Instructions: Follow-up with her primary care physician as needed. Return for any emergent medical conditions. Med/Other Pt SpecificInfo: No Change to Meds Disposition: 01 DISCHARGE HOME Condition: Stable Edy Bell Nov 19, 2017 21:22
[2017-11-19] MEDS ORDERED: LORazepam 2 MG/ML VIAL IV PUSH ONE (21:30)
[2017-11-19 21:59] VITALS: BP 114/77; PULSE 109; RESP 22; O2SAT 100
[2017-11-19 22:01] LABS: AUTOMATED NEUTROPHIL # 10.1 TH/MM3 (1.8-7.7); BASOPHIL # 0.1 TH/MM3 (0-0.2); BASOPHIL % 0.7 % (0.0-2.0); EOSINOPHIL # 0.1 TH/MM3 (0-0.4); EOSINOPHIL % 0.7 % (0.0-4.0); HEMATOCRIT 36.1 % (35.0-46.0); HEMOGLOBIN 12.1 GM/DL (11.6-15.3); LYMPH % 22.1 % (9.0-44.0); LYMPHOCYTE # 3.2 TH/MM3 (1.0-4.8); MEAN CELL VOLUME 75.6 FL (80.0-100.0); MEAN CORPUSCULAR HEMOGLOBIN 25.4 PG (27.0-34.0); MEAN CORPUSCULAR HGB CONC 33.6 % (32.0-36.0); MEAN PLATELET VOLUME 8.1 FL (7.0-11.0); MONO % 7.7 % (0.0-8.0); MONOCYTE # 1.1 TH/MM3 (0-0.9); NEUT % 68.8 % (16.0-70.0); PLATELET COUNT 362 TH/MM3 (150-450); RED BLOOD COUNT 4.77 MIL/MM3 (4.00-5.30); RED CELL DISTRIBUTION WIDTH 14.1 % (11.6-17.2); WHITE BLOOD COUNT 14.6 TH/MM3 (4.0-11.0)
[2017-11-19 22:17] LABS: PROTHROMBIN TIME - PATIENT 10.6 SEC (9.8-11.6)
--- NOTE | 2017-11-19 22:17 | RADRPT ---
EXAM DATE/TIME: 11/19/2017 21:53 [facility] COMPARISON: CHEST SINGLE AP, June 10, 2017, 3:21. INDICATIONS : Chest pain. MEDICAL HISTORY : None. SURGICAL HISTORY : None. ENCOUNTER: Initial ACUITY: 4 - 6 days PAIN SCORE: 7/10 LOCATION: middle chest. FINDINGS: A single view of the chest demonstrates the lungs to be symmetrically aerated without evidence of mas s, infiltrate or effusion. The cardiomediastinal contours are unremarkable. Osseous structures are intact. Mid-portions of a ventriculoperitoneal shunt catheter again noted. CONCLUSION: No evidence of acute cardiopulmonary disease. Yony Jamison MD on November 19, 2017 at 22:14 Board Certified Radiologist. This report was verified electronically.
[2017-11-19 22:20] LABS: BICARBONATE 22.5 MEQ/L (21.0-32.0); BLOOD UREA NITROGEN 12 MG/DL (7-18); CALCIUM 9.3 MG/DL (8.5-10.1); CHLORIDE 110 MEQ/L (98-107); CREATININE 0.87 MG/DL (0.50-1.00); GLOMERULAR FILTRATION RATE 96 ML/MIN (>89); GLUCOSE,RANDOM 114 MG/DL (74-106); SODIUM (NA) 143 MEQ/L (136-145)
[2017-11-19 22:24] LABS: TROPONIN I LESS THAN 0.02 NG/ML (0.02-0.05)
[2017-11-19 22:26] LABS: D-DIMER 0.2 MG/L FEU (0.00-0.50)
[2017-11-19] MEDS ORDERED: POTASSIUM CHLORIDE 20 MEQ CONTROLLED RELEASE TAB PO ONE (22:30)
--- NOTE | 2017-11-20 13:53 | EKG ---
Date Performed: 11/19/2017 Time Performed: 21:10:13 PTAGE: 27 years EKG: SINUS TACHYCARDIA NONSPECIFIC T-WAVE ABNORMALITY ABNORMAL RHYTHM ECG PREVIOUS TRACING : 06/10/2017 02.58 Since the previous tracing, no significant change noted DOCTOR: Gee Balbuena Interpretating Date/Time 11/20/2017 13:48:41
== END 2017-11-19 22:46 | disposition home or self-care (01) ==
LOC: NEPC 20:47
DX: R07.89 Other chest pain (principal); F41.9 Anxiety disorder, unspecified; J45.909 Unspecified asthma, uncomplicated; R00.0 Tachycardia, unspecified; R94.31 Abnormal electrocardiogram [ECG] [EKG]; G91.9 Hydrocephalus, unspecified; Z98.2 Presence of cerebrospinal fluid drainage device; Z88.6 Allergy status to analgesic agent; Z88.5 Allergy status to narcotic agent
CPT/HCPCS: 71045; 80048; 82550; 82552; 83735; 84484; 84703; 85025; 85379; 85610; 85730; 93005; 96361; 96374; 99285; J2060; J7030

== ENCOUNTER 2017-12-28 16:02 | Emergency (ER) | payer OTHER ==
[~2017-12-28] VITALS: Ht 160 cm; Wt 85.0 kg
[~2017-12-28 16:02] MED LIST changes: -AUGM875T3 PO; -ZOFR4TAB PO
[2017-12-28 16:48] VITALS: BP 124/58; PULSE 103; RESP 20; TEMP 99.2; O2SAT 98
[2017-12-28] MEDS ORDERED: RESP: ALBUTEROL 2.5 MG/IPRATROPIUM 0.5 MG NEB (SCH) INH ONE (18:15)
[2017-12-28] MEDS ORDERED: KETOROLAC TROMETHAMINE 60 MG/2 ML (IM) VIAL IM ONE (18:15)
[2017-12-28] MEDS ORDERED: predniSONE 20 MG TAB PO ONE (18:15)
--- NOTE | 2017-12-28 18:24 | PD ---
HPI Chief Complaint: Cold / Flu Symptoms Time Seen by Provider: 18:04 Travel History International Travel<30 days: No Contact w/Intl Traveler<30days: No Traveled to known affect area: No History of Present Illness HPI 27-year-old female, with history of asthma, presents to the emergency department with complaint of headache, body aches, chest tightness, "a little "shortness of breath, nasal congestion, sore throat, wheezing for the past 3 days. Denies chest pain. Denies abdominal pain, nausea, vomiting, dysuria. Reports subjective fevers. Says her throat hurts really bad. Denies lump in throat, difficulty swallowing, unusual drooling. Reports painful swallowing. Has been using [id number] cold and flu medication for symptom management. Has also been using her inhaler, but ran out yesterday. Is complaining of back pain. Says last time she had back pain like that she had pneumonia. Denies urinary symptoms. Rates pain 10/10. No known aggravating or relieving factors. Does not know the name of her primary care provider. Allergies as listed on the chart. Says Tylenol, naproxen, tramadol, and codeine make her itch and she is usually given Benadryl if these medications need to be given. History of asthma. Has no other medical complaints. No other modifying factors or associated signs and symptoms. PFSH Past Medical History Hx Anticoagulant Therapy: No Arthritis: No Asthma: No Autoimmune Disease: No Blood Disorders: No Anxiety: No Depression: No Heart Rhythm Problems: No Cancer: No Cardiovascular Problems: Yes High Cholesterol: No Chemotherapy: No Chest Pain: Yes Congestive Heart Failure: No COPD: No Cerebrovascular Accident: No Cystic Fibrosis: No Diabetes: No Diminished Hearing: No Endocrine: No Gastrointestinal Disorders: No GERD: No Genitourinary: No Headaches: Yes Hiatal Hernia: No Heparin Induced Thrombocytopen: No Hypertension: No Immune Disorder: No Implanted Vascular Access Dvce: Yes Kidney Stones: No Musculoskeletal: Yes (CHRONIC BACK PAIN ) Neurologic: Yes (HYDROCEPHALUS) Psychiatric: No Reproductive: No Respiratory: Yes (asthma) Immunizations Current: Yes Migraines: Yes Pneumonia: Yes (04/13/2012) Radiation Therapy: No Renal Failure: No Seizures: No Sickle Cell Disease: No Sleep Apnea: No Thyroid Disease: No Ulcer: No PNEUMOCCOCAL Vaccine (Year): 2 ?: Not LMP: DEPO SHOT Menopausal: No : 0 Para: 0 Past Surgical History Abdominal Surgery: No AICD: No Arteriovenous Shunt: Yes (AT 5 MONTHS OLD) Body Medical Devices: CEPHALIC SHUNT AT 5 MONTHS OLD / 16-17 sx since Cardiac Surgery: No Ear Surgery: No Endocrine Surgery: No Eye Surgery: No Genitourinary Surgery: No Gynecologic Surgery: No Insulin Pump: No Joint Replacement: No Neurologic Surgery: Yes (CEPHALIC SHUNT) Oral Surgery: No Pacemaker: No Thoracic Surgery: No Other Surgery: Yes Social History Alcohol Use: No Tobacco Use: No Substance Use: No Allergies-Medications (Allergen,Severity, Reaction): Coded Allergies: acetaminophen (Unverified Allergy, Severe, 12/28/17) codeine (Unverified Allergy, Severe, 12/28/17) naproxen (Unverified Allergy, Severe, Itching, 12/28/17) tramadol (Unverified Allergy, Severe, Itching, 12/28/17) *MDRO Multi-Drug Resistant Organism (Verified Adverse Reaction, Unknown, ) 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 No rash. HEAD: Atraumatic. Normocephalic. EYES: Pupils equal and round. No scleral icterus. No injection or drainage. ENT: Mucosa pink and moist. Oral pharynx with 2+ tonsillar edema and without erythema; exudate noted to the left tonsil. No uvular, palatal, or tonsillar deviation. Airway patent. EARS: Bilateral pinnae and external canals appear within normal limits. Bilateral tympanic membranes without erythema, dullness or perforation. NECK: Trachea midline. No lymphadenopathy. CARDIOVASCULAR: Regular rate and rhythm. No murmur appreciated. RESPIRATORY: No accessory muscle use. Clear to auscultation; minimal wheezing noted in bilateral bases. Breath sounds equal bilaterally. No retractions or tachypnea. No audible wheezing. GASTROINTESTINAL: Abdomen soft, non-tender, nondistended. Hepatic and splenic margins not palpable. Bowel sounds are active 4 quadrants. MUSCULOSKELETAL: No obvious deformities. No clubbing. No cyanosis. No edema. NEUROLOGICAL: Awake and alert. Oriented 3. No obvious cranial nerve deficits. Motor grossly within normal limits. Normal speech. Moves all extremities. 5/5 strength to all extremities. PSYCHIATRIC: Appropriate mood and affect; insight and judgment normal. Data Data Last Documented VS Vital Signs Date Time Temp Pulse Resp B/P (MAP) Pulse Ox O2 Delivery O2 Flow Rate FiO2 12/28/17 16:48 99.2 103 20 124/58 (80) 98 Orders Orders Chest, Single Ap (12/28/17 18:12) Prednisone (Deltasone) (12/28/17 18:15) Albuterol-Ipratropium Neb (Duoneb Neb) (12/28/17 18:15) Ketorolac Inj (Toradol Inj) (12/28/17 18:15) Urinalysis - C+S If Indicated (12/28/17 18:12) Group A Rapid Strep Screen (12/28/17 18:12) MDM Medical Decision Making Medical Screen Exam Complete: Yes Emergency Medical Condition: Yes Medical Record Reviewed: Yes Differential Diagnosis Upper respiratory infection, strep pharyngitis, asthma exacerbation, pneumonia, bronchitis, strep pharyngitis, viral pharyngitis, influenza Narrative Course 27-year-old female with history of asthma with upper respiratory symptoms and asthma exacerbation. She is also complaining of sore throat. There is some tonsillar edema and exudate noted to the oropharynx. Patient is afebrile and nontoxic-appearing. She reports subjective fevers. Denies vomiting. Patient has exacerbated pain on light palpation all over her back; this is an unreliable finding on exam. I will do a urinalysis to rule out UTI causing her back pain. DuoNeb, Deltasone, urinalysis, rapid strep ordered. 1852: Report given to Edy Bell PA-C at change of shift. See his note for final patient disposition. Referrals: [facility] Primary Care Physician Med/Other Pt SpecificInfo: Prescription(s) given Scripts Albuterol 18 GM Inh (Ventolin Hfa 18 GM Inh) 90 Mcg/Act Aer 2 PUFF INH Q4-6H Y for SOB/WHEEZING, #1 INHALER 0 Refills Prov: Shraddha Dolan 12/28/17 Prednisone (Deltasone) 20 Mg Tab 40 MG PO DAILY for 4 Days, #8 TAB 0 Refills start 12/29/2017 Prov: Shraddha Dolan 12/28/17 Shraddha Dolan Dec 28, 2017 18:24
[2017-12-28] MEDS ORDERED: VENTAER INH (18:27)
[2017-12-28] MEDS ORDERED: PRED-503 PO (18:27)
[2017-12-28 19:09] LABS: AMORPHOUS SEDIMENT, URINE RARE; BILIRUBIN, URINE NEG (NEG); BLOOD, URINE TRACE (NEG); GLUCOSE,URINE NEG (NEG); KETONE, URINE 40 mg/dL (NEG); MUCUS URINE FEW /lpf (OCC); NITRITE,URINE NEG (NEG); PH, URINE 5.5 (5.0-8.5); SQUAMOUS EPITHELIAL CELL URINE 4 /hpf (0-5); URINE COLOR YELLOW (YELLW/STRAW); URINE LEUKOCYTE ESTERASE MOD (NEG)
--- NOTE | 2017-12-28 19:49 | PD ---
Data Data Last Documented VS Vital Signs Date Time Temp Pulse Resp B/P (MAP) Pulse Ox O2 Delivery O2 Flow Rate FiO2 12/28/17 16:48 99.2 103 20 124/58 (80) 98 Orders Orders Chest, Single Ap (12/28/17 18:12) Prednisone (Deltasone) (12/28/17 18:15) Albuterol-Ipratropium Neb (Duoneb Neb) (12/28/17 18:15) Ketorolac Inj (Toradol Inj) (12/28/17 18:15) Urinalysis - C+S If Indicated (12/28/17 18:12) Group A Rapid Strep Screen (12/28/17 18:12) Ed Urine Pregnancytest Poc (12/28/17 19:04) Strep Culture (Group A) (12/28/17 18:50) Ed Discharge Order (12/28/17 20:02) Labs Laboratory Tests Test 12/28/17 18:50 Urine Color YELLOW Urine Turbidity HAZY Urine pH 5.5 Urine Specific [place] 1.015 Urine Protein NEG mg/dL Urine Glucose (UA) NEG mg/dL Urine Ketones 40 mg/dL Urine Occult Blood TRACE Urine Nitrite NEG Urine Bilirubin NEG Urine Urobilinogen LESS THAN 2.0 MG/DL Urine Leukocyte Esterase MOD Urine RBC 2 /hpf Urine WBC 3 /hpf Urine Squamous Epithelial Cells 4 /hpf Urine Amorphous Sediment RARE Urine Mucus FEW /lpf Microscopic Urinalysis Comment CULT NOT INDICATED MDM Medical Record Reviewed: Yes Supervised Visit with ANNIKA: No Narrative Course Please see previous providers notes for complete history of present illness. Briefly this is a 27-year-old female with 2-3 days of cough, congestion, sore throat, subjective fevers. The cough is productive with green sputum. Physical examination is reassuring. Her lungs are clear to auscultation. She is afebrile. She is not tachycardic. Rapid strep screen is negative. Urinalysis is negative. Urine test is negative. Chest x-ray is negative. At this point time the plan is to discharge the patient with what appears to be a viral upper respiratory infection. Previous provider has written prescriptions for albuterol inhaler and prednisone. She is stable for discharge. Diagnosis Primary Impression: Upper respiratory infection Referrals: [facility] Primary Care Physician Additional Instruction: Medication as needed. Stay well hydrated and well-nourished. Wash hands frequently. Return for any emergent medical conditions. Med/Other Pt SpecificInfo: Prescription(s) given Scripts Albuterol 18 GM Inh (Ventolin Hfa 18 GM Inh) 90 Mcg/Act Aer 2 PUFF INH Q4-6H Y for SOB/WHEEZING, #1 INHALER 0 Refills Prov: Shraddha Dolna [employer] 12/28/17 Prednisone (Deltasone) 20 Mg Tab 40 MG PO DAILY for 4 Days, #8 TAB 0 Refills start 12/29/2017 Prov: Shraddha DolanP 12/28/17 Disposition: 01 DISCHARGE HOME Condition: Stable Edy Bell Dec 28, 2017 19:49
--- NOTE | 2017-12-28 19:59 | RADRPT ---
EXAM DATE: 12/28/2017 7:24 PM EDT AGE/SEX: 27 years / Female INDICATIONS: Cough CLINICAL DATA: This is the patient's initial encounter. Patient reports that signs and symptoms have been present for 1 day and indicates a pain score of 2/10. MEDICAL/SURGICAL HISTORY: . Pneumonia None. COMPARISON: [facility] [place], CHEST SINGLE AP, 11/19/2017. . FINDINGS: A single AP view of the chest demonstrates the lungs to be symmetrically aerated without evidence of mass, infiltrate or effusion. The cardiomediastinal contours are unremarkable. Osseous structures a re intact. CONCLUSION: No active disease. Shunt tubing projected over the thorax. Electronically signed by: Alonso Lancaster MD 12/28/2017 7:58 PM EDT
== END 2017-12-28 20:16 | disposition home or self-care (01) ==
LOC: NEPD 16:02
DX: J06.9 Acute upper respiratory infection, unspecified (principal); J45.901 Unspecified asthma with (acute) exacerbation
CPT/HCPCS: 71045; 81001; 84703; 87081; 87880; 94664; 96372; 99284; J1885; J7512